=== PATIENT | male | born 1975 | race African-American/Black ===

== ENCOUNTER 2018-02-23 19:25 | Emergency (ER) | payer SELFPAY ==
[~2018-02-23] VITALS: Ht 170.2 cm; Wt 68.0 kg
[2018-02-23] MEDS ORDERED: IBUPROFEN 600 MG TABLET. PO ONE ×2 (20:00)
[2018-02-23] MEDS ORDERED: IV NORMAL SALINE 1000ML BAG 1,000 ML IV ONE ×3 (20:00→21:00)
[2018-02-23 20:15] LABS: BASO # 0.1 x10^3/uL (0.0-0.2); BASO % 1 % (0-3); EOS # 0.3 x10^3/uL (0.0-0.7); EOS % 3 % (0-3); HEMATOCRIT 32.6 % (39.0-53.0); HEMOGLOBIN 11.1 g/dL (13.0-17.5); LYMPH # 1.4 x10^3/uL (1.0-4.8); LYMPH % 13 % (24-48); MEAN CORPUSCULAR HEMOGLOBIN 32 pg (25-35); MEAN CORPUSCULAR HGB CONC 34 g/dL (31-37); MEAN CORPUSCULAR VOLUME 95 fL (79-100); MONO # 0.9 x10^3/uL (0.0-1.1); MONO % 8 % (0-9); NEUT # 8.8 x10^3uL (1.8-7.7); NEUT % 76 % (31-73); PLATELET COUNT 608 x10^3/uL (140-400); RED BLOOD COUNT 3.44 x10^6/uL (4.30-5.70); RED CELL DISTRIBUTION WIDTH 14.3 % (11.5-14.5); WHITE BLOOD COUNT 11.6 x10^3/uL (4.0-11.0)
--- NOTE | 2018-02-23 20:18 | PHYS DOC ---
Past Medical History Past Medical History: No Pertinent History Past Surgical History: Other Additional Past Surgical Histo: ABDOMINAL HERNIA Additional Information: Former smoker Alcohol Use: None Drug Use: Marijuana Adult General Chief Complaint Chief Complaint: FEVER HPI HPI 42-year-old male presents with report of fever and pruritic rash which started 6 days ago. Reports Review of Systems Review of Systems Constitutional: Denies fever or chills [] Eyes: Denies change in visual acuity, redness, or eye pain [] HENT: Denies nasal congestion or sore throat [] Respiratory: Denies cough or shortness of breath [] Cardiovascular: No additional information not addressed in HPI [] GI: Denies abdominal pain, nausea, vomiting, bloody stools or diarrhea [] : Denies dysuria or hematuria [] Musculoskeletal: Denies back pain or joint pain [] Integument: Denies rash or skin lesions [] Neurologic: Denies headache, focal weakness or sensory changes [] Endocrine: Denies polyuria or polydipsia [] All other systems were reviewed and found to be within normal limits, except as documented in this note. Current Medications Current Medications Current Medications Medications (Trade) Dose Ordered Sig/Marai Start Time Stop Time Status Last Admin Dose Admin Dexamethasone Sodium Phosphate (Decadron) 10 mg 1X ONCE 02/23/18 20:45 02/23/18 20:46 DC 02/23/18 21:02 10 MG Diphenhydramine HCl (Benadryl) 50 mg 1X ONCE 02/23/18 20:45 02/23/18 20:46 DC 02/23/18 21:02 50 MG Ibuprofen (Motrin) 600 mg STK-MED ONCE 02/23/18 20:00 02/23/18 20:01 DC Sodium Chloride 1,000 ml @ 1,000 mls/hr 1X ONCE 02/23/18 21:00 02/23/18 21:59 02/23/18 21:02 1,000 MLS/HR Allergies Allergies Allergies Coded Allergies Type Severity Reaction Last Updated Verified No Known Drug Allergies 02/23/18 No Physical Exam Physical Exam Constitutional: Well developed, well nourished, no acute distress, non-toxic appearance. [] HENT: Normocephalic, atraumatic, bilateral external ears normal, oropharynx moist, no oral exudates, nose normal. [] Eyes: PERRLA, EOMI, conjunctiva normal, no discharge. [] Neck: Normal range of motion, no tenderness, supple, no stridor. [] Cardiovascular:Heart rate regular rhythm, no murmur [] Lungs & Thorax: Bilateral breath sounds clear to auscultation [] Abdomen: Bowel sounds normal, soft, no tenderness, no masses, no pulsatile masses. [] Skin: Warm, dry, no erythema, no rash. [] Back: No tenderness, no CVA tenderness. [] Extremities: No tenderness, no cyanosis, no clubbing, ROM intact, no edema. [] Neurologic: Alert and oriented X 3, normal motor function, normal sensory function, no focal deficits noted. [] Psychologic: Affect normal, judgement normal, mood normal. [] Current Patient Data Vital Signs Vital Signs Date Time Temp Pulse Resp B/P (MAP) Pulse Ox O2 Delivery O2 Flow Rate FiO2 02/23/18 19:40 102.3 125 24 143/96 (112) 99 Room Air 102.3 Lab Values Laboratory Tests Test 02/23/18 19:54 02/23/18 20:00 White Blood Count 11.6 x10^3/uL (4.0-11.0) H Red Blood Count 3.44 x10^6/uL (4.30-5.70) L Hemoglobin 11.1 g/dL (13.0-17.5) L Hematocrit 32.6 % (39.0-53.0) L Mean Corpuscular Volume 95 fL (79-100) Mean Corpuscular Hemoglobin 32 pg (25-35) Mean Corpuscular Hemoglobin Concent 34 g/dL (31-37) Red Cell Distribution Width 14.3 % (11.5-14.5) Platelet Count 608 x10^3/uL (140-400) H Neutrophils (%) (Auto) 76 % (31-73) H Lymphocytes (%) (Auto) 13 % (24-48) L Monocytes (%) (Auto) 8 % (0-9) Eosinophils (%) (Auto) 3 % (0-3) Basophils (%) (Auto) 1 % (0-3) Neutrophils # (Auto) 8.8 x10^3uL (1.8-7.7) H Lymphocytes # (Auto) 1.4 x10^3/uL (1.0-4.8) Monocytes # (Auto) 0.9 x10^3/uL (0.0-1.1) Eosinophils # (Auto) 0.3 x10^3/uL (0.0-0.7) Basophils # (Auto) 0.1 x10^3/uL (0.0-0.2) Sodium Level 134 mmol/L (136-145) L Potassium Level 3.8 mmol/L (3.5-5.1) Chloride Level 98 mmol/L (98-107) Carbon Dioxide Level 28 mmol/L (21-32) Anion Gap 8 (6-14) Blood Urea Nitrogen 22 mg/dL (8-26) Creatinine 1.1 mg/dL (0.7-1.3) Estimated GFR (Cockcroft-Gault) 89.7 BUN/Creatinine Ratio 20 (6-20) Glucose Level 160 mg/dL (70-99) H Lactic Acid Level 1.2 mmol/L (0.4-2.0) Calcium Level 8.7 mg/dL (8.5-10.1) Magnesium Level 1.9 mg/dL (1.8-2.4) Total Bilirubin 0.6 mg/dL (0.2-1.0) Aspartate Amino Transferase (AST) 69 U/L (15-37) H Alanine Aminotransferase (ALT) 98 U/L (16-63) H Alkaline Phosphatase 548 U/L (46-116) H Total Protein 7.3 g/dL (6.4-8.2) Albumin 2.0 g/dL (3.4-5.0) L Albumin/Globulin Ratio 0.4 (1.0-1.7) L Urine Collection Type Unknown Urine Color Yellow Urine Clarity Clear Urine pH 5.5 Urine Specific Alice 1.015 Urine Protein >=300 mg/dL (NEG-TRACE) Urine Glucose (UA) Negative mg/dL (NEG) Urine Ketones (Stick) Negative mg/dL (NEG) Urine Blood Small (NEG) Urine Nitrite Negative (NEG) Urine Bilirubin Negative (NEG) Urine Urobilinogen Dipstick 1.0 mg/dL (0.2 mg/dL) Urine Leukocyte Esterase Negative (NEG) Urine RBC 1-2 /HPF (0-2) Urine WBC 1-4 /HPF (0-4) Urine Squamous Epithelial Cells Occ /LPF Urine Bacteria 0 /HPF (0-FEW) Urine Opiates Screen Pos (NEG) Urine Methadone Screen Neg (NEG) Urine Barbiturates Neg (NEG) Urine Phencyclidine Screen Neg (NEG) Urine Amphetamine/Methamphetamine Pos (NEG) Urine Benzodiazepines Screen Neg (NEG) Urine Cocaine Screen Neg (NEG) Urine Cannabinoids Screen Pos (NEG) Urine Ethyl Alcohol Neg (NEG) Laboratory Tests 02/23/18 19:54 Laboratory Tests 02/23/18 19:54 EKG EKG [] Radiology/Procedures Radiology/Procedures [] Course & Med Decision Making Course & Med Decision Making Pertinent Labs and Imaging studies reviewed. (See chart for details) [] Dragon Disclaimer Dragon Disclaimer This electronic medical record was generated, in whole or in part, using a voice recognition dictation system. Departure Departure Impression: Primary Impression: Pruritic rash Disposition: 01 HOME, SELF-CARE Condition: STABLE Referrals: NO PCP (PCP) EDU SHEA MD Patient Instructions: Chickenpox, Adult, Rash, [id number] Scripts Diphenhydramine Hcl (BENADRYL) 25 Mg Capsule 1 CAP PO QID PRN for ITCHING, #14 CAP 0 Refills Prov: ZHANE PROCTOR DO 02/23/18 Prednisone (PREDNISONE) 20 Mg Tablet 2 TAB PO DAILY, #8 TAB Start tomorrow 02/24/18 Prov: ZHANE PROCTOR DO 02/23/18 ZHANE PROCTOR DO Feb 23, 2018 20:18
[2018-02-23 20:20] LABS: BILIRUBIN,URINE NEGATIVE (NEG); CLARITY,URINE CLEAR; COLOR,URINE YELLOW; NITRITE,URINE NEGATIVE (NEG); PH,URINE 5.5; PROTEIN,URINE >=300 mg/dL (NEG-TRACE)
[2018-02-23 20:32] LABS: CALCIUM 8.7 mg/dL (8.5-10.1); CREATININE 1.1 mg/dL (0.7-1.3); GFR 89.7; POTASSIUM 3.8 mmol/L (3.5-5.1)
[2018-02-23 20:35] LABS: BACTERIA,URINE 0 /HPF (0-FEW); SQUAMOUS EPITHELIAL CELL,UR OCC /LPF
[2018-02-23 20:41] LABS: AMPHETAMINE/METHAMPHETAMINE POS (NEG); BARBITURATES NEG (NEG); BENZODIAZEPINES NEG (NEG); CANNABINOIDS POS (NEG); COCAINE NEG (NEG); METHADONE NEG (NEG); OPIATES POS (NEG); PHENCYCLIDINE NEG (NEG)
[2018-02-23 20:42] LABS: ALBUMIN/GLOBULIN RATIO 0.4 (1.0-1.7); TOTAL BILIRUBIN 0.6 mg/dL (0.2-1.0); TOTAL PROTEIN 7.3 g/dL (6.4-8.2)
[2018-02-23] MEDS ORDERED: DEXAMETHASONE SOD PHOS 20 MG/5 ML VIAL. IV ONE (20:45)
[2018-02-23] MEDS ORDERED: diphenhydrAMINE HCL 25 MG CAPSULE PO ONE (20:45)
[2018-02-23] MEDS ORDERED: DIPH25CA58 PO (21:48)
[2018-02-23] MEDS ORDERED: PRED20TA PO (21:48)
[2018-02-23 22:05] VITALS: BP 135/81
--- NOTE | 2018-02-24 03:00 | RAD ---
Examination: CHEST AP ONLY History: ER PATIENT. FEVER RASH X6 DAYS. NO PRIORS Comparison/Correlation: None Findings: Portable upright frontal view chest was obtained. Heart size and pulmonary vasculature are normal. No infiltrate or pneumothorax. Bony structures are unremarkable. No pleural effusion. Impression: No active disease. Electronically signed by: Terell Posada MD (02/24/2018 2:56 AM) [facility]
== END 2018-02-23 22:32 | disposition home or self-care (01) ==
LOC: ER 19:25
DX: L29.9 Pruritus, unspecified (principal); R21 Rash and other nonspecific skin eruption; R50.9 Fever, unspecified; Z87.891 Personal history of nicotine dependence
CPT/HCPCS: 36415; 71045; 80053; 80307; 81001; 83605; 83735; 85025; 87040; 96374; 99284; J1100; J7030; Q0163

== ENCOUNTER 2018-05-21 23:37 | Inpatient (IN) | payer SELFPAY ==
[~2018-05-21] VITALS: Ht 172.7 cm; Wt 68.0 kg
[~2018-05-21 23:37] MED LIST: DIPH25CA58 PO; PRED20TA PO
[2018-05-22] VITALS (8 sets, daily range): BP systolic 131–160; BP diastolic 83–108
[2018-05-22] MEDS ORDERED: MORPHINE SULFATE 2 MG/ML VIAL. IV/SQ PRN (00:30)
--- NOTE | 2018-05-22 00:59 | PHYS DOC ---
Past Medical History Past Medical History: No Pertinent History Past Surgical History: Other Additional Past Surgical Histo: ABDOMINAL HERNIA Additional Information: 1PPD Alcohol Use: None Drug Use: Marijuana Adult General Chief Complaint Chief Complaint: FOOT INJURY PAIN HPI HPI Patient is a 42 year old male who presents to the ED today complaining infection on the right foot that began one week ago. He states it began as blisters, on the in between the third and fourth toes, he states he has been soaking the foot in warm water then realized this evening the infection has gotten worse. Patient denies any fever. Review of Systems Review of Systems Constitutional: Denies fever or chills [] Eyes: Denies change in visual acuity, redness, or eye pain [] HENT: Denies nasal congestion or sore throat [] Respiratory: Denies cough or shortness of breath [] Cardiovascular: No additional information not addressed in HPI [] GI: Denies abdominal pain, nausea, vomiting, bloody stools or diarrhea [] : Denies dysuria or hematuria [] Musculoskeletal: Reports right foot infection Denies back pain or joint pain [] Integument: Denies rash or skin lesions [] Neurologic: Denies headache, focal weakness or sensory changes [] All other systems were reviewed and found to be within normal limits, except as documented in this note. Current Medications Current Medications Current Medications Medications (Trade) Dose Ordered Sig/Maria Start Time Stop Time Status Last Admin Dose Admin Diphtheria/ Tetanus/Acell Pertussis (Boostrix) 0.5 ml ONCE ONCE 05/22/18 01:00 05/22/18 01:01 DC Morphine Sulfate (Morphine Sulfate) 2 mg PRN Q15MIN PRN 05/22/18 00:30 05/23/18 00:29 Piperacillin Sod/ Tazobactam Sod 4.5 gm/Sodium Chloride 100 ml @ 200 mls/hr 1X ONCE 05/22/18 01:00 05/22/18 01:29 Vancomycin HCl (Vanco Per Pharmacy) 1 each PRN DAILY PRN 05/22/18 00:30 Vancomycin HCl 1.75 gm/Sodium Chloride 500 ml @ 250 mls/hr 1X ONCE 05/22/18 01:30 05/22/18 03:29 Allergies Allergies Allergies Coded Allergies Type Severity Reaction Last Updated Verified No Known Drug Allergies 02/23/18 No Physical Exam Physical Exam Constitutional: Well developed, well nourished, no acute distress, non-toxic appearance. [] HENT: Normocephalic, atraumatic, bilateral external ears normal, oropharynx moist, no oral exudates, nose normal. [] Eyes: PERRLA, EOMI, conjunctiva normal, no discharge. [] Neck: Normal range of motion, no tenderness, supple, no stridor. [] Cardiovascular:Heart rate regular rhythm, no murmur [] Lungs & Thorax: Bilateral breath sounds clear to auscultation [] Abdomen: Bowel sounds normal, soft, no tenderness, no masses, no pulsatile masses. [] Skin: Warm, dry, no erythema, no rash. [] Back: No tenderness, no CVA tenderness. [] Extremities: Right foot with +3 edema, most of it is on the foot itself, there is a wound between the third and fourth toes with the yellow drainage, the skin in between the toes is macerated. Cellulitis surrounding the third and fourth toes. +2 right pedal pulse. Neurologic: Alert and oriented X 3, normal motor function, normal sensory function, no focal deficits noted. [] Psychologic: Affect normal, judgement normal, mood normal. [] Current Patient Data Vital Signs Vital Signs Date Time Temp Pulse Resp B/P (MAP) Pulse Ox O2 Delivery O2 Flow Rate FiO2 05/22/18 00:39 98.8 125 20 161/100 (120) 96 Room Air 98.8 EKG EKG [] Radiology/Procedures Radiology/Procedures [] Course & Med Decision Making Course & Med Decision Making Pertinent Labs and Imaging studies reviewed. (See chart for details) This is a 42-year-old male patient presenting to the ED today with infection between the third and fourth toes on the right foot. Patient will be admitted for IV antibiotics, labs ordered in the ED. Patient started on vancomycin and Zosyn in the ED. Admitted under Dr. Natividad Epps will give her information in the AM Consult placed for Ortho and wound care Dragon Disclaimer Dragon Disclaimer This electronic medical record was generated, in whole or in part, using a voice recognition dictation system. Departure Departure Impression: Primary Impression: Foot infection Additional Impression: Tinea pedis, right Disposition: 01 HOME, SELF-CARE Condition: STABLE Referrals: NO PCP (PCP) Problem Qualifiers YEN DAS APRN 15, 2019 00:59
[2018-05-22] MEDS ORDERED: DIPHTH,PERTUSS(ACELL),TET TOX 0.5 ML DISP.SYRIN. VAX IM ONE (01:00)
[2018-05-22] MEDS ORDERED: PIPERACILLIN/TAZOBACTAM 4.5 GM in IV NORMAL SALINE 100ML 100 ML IV ONE (01:00)
[2018-05-22] MEDS ORDERED: MORPHINE SULFATE 4 MG/ML VIAL. IV PRN (01:15)
[2018-05-22] MEDS ORDERED: ONDANSETRON PF 4 MG/2 ML VIAL. IV PRN ×2 (01:15→09:15)
[2018-05-22] MEDS ORDERED: VANCOMYCIN 1.75 GM in IV NORMAL SALINE 500ML BAG 500 ML IV ONE (01:30)
[2018-05-22 02:00] LABS: BASO # 0.1 x10^3/uL (0.0-0.2); BASO % 1 % (0-3); EOS # 0.3 x10^3/uL (0.0-0.7); EOS % 3 % (0-3); HEMATOCRIT 37.1 % (39.0-53.0); HEMOGLOBIN 12.2 g/dL (13.0-17.5); LYMPH # 1.8 x10^3/uL (1.0-4.8); LYMPH % 20 % (24-48); MEAN CORPUSCULAR HEMOGLOBIN 30 pg (25-35); MEAN CORPUSCULAR HGB CONC 33 g/dL (31-37); MEAN CORPUSCULAR VOLUME 90 fL (79-100); MONO # 0.6 x10^3/uL (0.0-1.1); MONO % 7 % (0-9); NEUT # 6.1 x10^3uL (1.8-7.7); NEUT % 69 % (31-73); PLATELET COUNT 563 x10^3/uL (140-400); RED BLOOD COUNT 4.12 x10^6/uL (4.30-5.70); RED CELL DISTRIBUTION WIDTH 16.2 % (11.5-14.5); WHITE BLOOD COUNT 8.8 x10^3/uL (4.0-11.0)
[2018-05-22] MEDS: cloNIDine HCL 0.1 MG TABLET PO SCH ×4 (02:00→21:12)
--- NOTE | 2018-05-22 02:10 | NUR ---
ADMIT Pt arrived via W/C to room 424. Patient pivot step to from WC to bed. A/Ox4, drowsy. Room air, afebrile. Hypertensive on admit. PT states having pain 8/10 pain in right foot. Blister, wound with edema observed on right foot, primarily at 3rd and 4th toes and in between. Foul Odor, and very calloused, scaly feet bilateral. Full admission assessment completed at this time. No other open wounds observed.
[2018-05-22 02:13] LABS: CALCIUM 9.7 mg/dL (8.5-10.1); GFR 100.1; POTASSIUM 4.6 mmol/L (3.5-5.1)
[2018-05-22 02:28] LABS: ALBUMIN 3.6 g/dL (3.4-5.0); ALBUMIN/GLOBULIN RATIO 0.8 (1.0-1.7); TOTAL BILIRUBIN 0.4 mg/dL (0.2-1.0); TOTAL PROTEIN 8.1 g/dL (6.4-8.2)
[2018-05-22] MEDS: VANCOMYCIN PER PHARMACY MC PRN (02:49)
--- NOTE | 2018-05-22 02:49 | NUR ---
Pharmacy Vancomycin Dosing Note S:Consulted to monitor and dose vancomycin started 05/22/18. O:HORACE CALDERON is a 42 year old M with FOOT INFECTION . Height: 5 feet, 8 inches Weight: 68.049566 kg [place] Body Weight: 68.40 Adjusted Body Weight: 68.24 Dosing Weight: Actual Other Antibiotics: LABS: Last BUN: 21 Last Creatinine: 1 Creatinine Clearance: 95 mL/min Last WBC: 8.8 Last Procalcitonin: Tmax (past 24 hours): Microbiology: I/O: Drug Levels: Last level: on at Last dose given 05/22/18 at 0200 Vancomycin Dosing: Loading Dose: 1750 mg x1 Dosing Weight: Actual Target Trough: 10-20 A: Based on: WT AND CRCL P: 1. Begin Vancomycin 1000 mg IV q12h 2. Follow up Trough level on 05/23/18 at 1330 3. Pharmacy will continue to monitor, follow and adjust therapy as needed. MARCELLE FORBES RPH, 05/22/18 0249 Signed: 05/22/18 at 0249 by MARCELLE FORBES RPH PHA
--- NOTE | 2018-05-22 04:15 | RAD ---
Indication:foot infection/swelling/pus drainage TECHNIQUE: 3 views of the right foot COMPARISON:None FINDINGS/ impression: No acute fracture or dislocation. No periosteal reaction or cortical erosion to suggest radiographic signs of osteomyelitis. Electronically signed by: Gen Brizuela DO (05/22/2018 4:12 AM) [facility]
--- NOTE | 2018-05-22 07:03 | NUR ---
Routine consult called to Dr. Lacy's office. Message left with answering service,
[2018-05-22] MEDS: LACTOBACILLUS RHAMNOSUS GG 1 CAPSULE. PO SCH ×3 (08:08→21:11)
[2018-05-22] MEDS ORDERED: oxyCODONE/APAP 10/325 1 TAB TABLET PO PRN (09:15)
[2018-05-22] MEDS ORDERED: oxyCODONE/APAP 5/325 1 TAB TABLET PO PRN (09:15)
--- NOTE | 2018-05-22 10:05 | PDOC2 ---
CONSULT Date of Consult Date of Consult DATE: 05/22/18 TIME: 09:59 Reason for Consult Reason for Consult: Right foot infection Identification/Chief Complaint Chief Complaint Right foot infection Source Source: Chart review, Patient History of Present Illness Reason for Visit: 42-year-old man who developed a foot infection between the third and fourth toes , which is getting worse and he is now admitted for treatment. It probably started when he had chickenpox about a month ago, and he had a chickenpox lesion between his toes which didn't heal well, and that has become secondarily infected. Social History Social History he does smoke cigarettes Current Problem List Problem List Problems Medical Problems: (1) Foot infection Status: Acute (2) Tinea pedis, right Status: Acute Current Medications Current Medications Current Medications Piperacillin Sod/ Tazobactam Sod 4.5 gm/Sodium Chloride 100 ml @ 200 mls/hr 1X ONCE IV Last administered on 05/22/18at 01:36; Start 05/22/18 at 01:00; Stop 05/22/18 at 01:29; Status DC Vancomycin HCl (Vanco Per Pharmacy) 1 each PRN DAILY PRN MC SEE COMMENTS Last administered on 05/22/18at 02:49; Start 05/22/18 at 00:30 Morphine Sulfate (Morphine Sulfate) 2 mg PRN Q15MIN PRN IV/SQ PAIN GREATER THAN 3/10; Start 05/22/18 at 00:30; Stop 05/22/18 at 09:46; Status DC Diphtheria/ Tetanus/Acell Pertussis (Boostrix) 0.5 ml ONCE ONCE VAX IM Last administered on 05/22/18at 01:44; Start 05/22/18 at 01:00; Stop 05/22/18 at 01:01 ; Status DC Vancomycin HCl 1.75 gm/Sodium Chloride 500 ml @ 250 mls/hr 1X ONCE IV Last administered on 05/22/18at 02:10; Start 05/22/18 at 01:30; Stop 05/22/18 at 03:29 ; Status DC Ondansetron HCl (Zofran) 4 mg PRN Q8HRS PRN IV NAUSEA/VOMITING 1ST CHOICE; Start 05/22/18 at 01:15; Stop 05/22/18 at 09:06; Status DC Morphine Sulfate (Morphine Sulfate) 4 mg PRN Q2HR PRN IV SEVERE PAIN; Start at 01:15; Stop 05/23/18 at 01:14 Clonidine HCl (Catapres) 0.1 mg Q8HRS PO Last administered on 05/22/18at 05:56; Start 05/22/18 at 02:00 Vancomycin HCl 1 gm/Sodium Chloride 250 ml @ 250 mls/hr Q12H IV ; Start at 14:00 Vancomycin HCl (Vancomycin Trough Level) 1 each 1X ONCE MC ; Start 05/23/18 at 13:30; Stop 05/23/18 at 13:31 Lactobacillus Rhamnosus (Culturelle) 1 cap BID PO ; Start 05/22/18 at 09:00 Ondansetron HCl (Zofran) 4 mg PRN Q6HRS PRN IV NAUSEA/VOMITING 1ST CHOICE; Start 05/22/18 at 09:15 Oxycodone/ Acetaminophen (Percocet 5/325) 1 tab PRN Q4HRS PRN PO MODERATE PAIN ; Start 05/22/18 at 09:15 Oxycodone/ Acetaminophen (Percocet 10/325) 1 tab PRN Q4HRS PRN PO SEVERE PAIN; Start 05/22/18 at 09:15 Active Scripts Active Benadryl (Diphenhydramine Hcl) 25 Mg Capsule 1 Cap PO QID PRN Prednisone 20 Mg Tablet 2 Tab PO DAILY Start tomorrow 02/24/18 Reported No Known Medications Prior To Admisstion (Info) Each 1 Each Allergies Allergies: Coded Allergies: No Known Drug Allergies (Unverified , 02/23/18) ROS Review of System He now has an upper respiratory infection and a cough, which seems to have persisted after his chickenpox. He has hoarseness. He also mentioned a lesion "down there" which has not healed properly after chickenpox, and pointed to the genital area General: No: Chills, Night Sweats Eyes: No Decreased vision HEENT: No: Heacaches Respiratory: YES: Cough Cardiovascular: No Chest Pain Gastrointestinal: No Nausea, No Vomiting, No Diarrhea Genitourinary: YES Other (see above) Neurological: No Confusion Physical Exam General: Alert, Cooperative HEENT: Atraumatic Lungs: Other (slight hoarseness/wheezing. Not cyanotic. RR normal.) Heart: Regular rate Abdomen: Soft Extremities: Other (maceration between the right third and fourth toes. Superficial purulence, probably a superficial skin infection. I do not palpate any abscess in the foot or between the metatarsal heads or into the toes.) Skin: Other (macerated lesion right foot as above) Neuro: Normal speech, Normal tone, Sensation intact Psych/Mental Status: Mood NL Vitals VITALS Vital Signs Date Time Temp Pulse Resp B/P (MAP) Pulse Ox O2 Delivery O2 Flow Rate FiO2 05/22/18 07:10 Room Air 05/22/18 07:00 98.0 101 18 131/96 (108) 96 98.0 Labs Labs Laboratory Tests Test 05/22/18 01:30 White Blood Count 8.8 x10^3/uL (4.0-11.0) Red Blood Count 4.12 x10^6/uL (4.30-5.70) Hemoglobin 12.2 g/dL (13.0-17.5) Hematocrit 37.1 % (39.0-53.0) Mean Corpuscular Volume 90 fL (79-100) Mean Corpuscular Hemoglobin 30 pg (25-35) Mean Corpuscular Hemoglobin Concent 33 g/dL (31-37) Red Cell Distribution Width 16.2 % (11.5-14.5) Platelet Count 563 x10^3/uL (140-400) Neutrophils (%) (Auto) 69 % (31-73) Lymphocytes (%) (Auto) 20 % (24-48) Monocytes (%) (Auto) 7 % (0-9) Eosinophils (%) (Auto) 3 % (0-3) Basophils (%) (Auto) 1 % (0-3) Neutrophils # (Auto) 6.1 x10^3uL (1.8-7.7) Lymphocytes # (Auto) 1.8 x10^3/uL (1.0-4.8) Monocytes # (Auto) 0.6 x10^3/uL (0.0-1.1) Eosinophils # (Auto) 0.3 x10^3/uL (0.0-0.7) Basophils # (Auto) 0.1 x10^3/uL (0.0-0.2) Erythrocyte Sedimentation Rate 65 (0-15) Sodium Level 139 mmol/L (136-145) Potassium Level 4.6 mmol/L (3.5-5.1) Chloride Level 99 mmol/L (98-107) Carbon Dioxide Level 28 mmol/L (21-32) Anion Gap 12 (6-14) Blood Urea Nitrogen 21 mg/dL (8-26) Creatinine 1.0 mg/dL (0.7-1.3) Estimated GFR (Cockcroft-Gault) 100.1 BUN/Creatinine Ratio 21 (6-20) Glucose Level 113 mg/dL (70-99) Lactic Acid Level 0.5 mmol/L (0.4-2.0) Calcium Level 9.7 mg/dL (8.5-10.1) Total Bilirubin 0.4 mg/dL (0.2-1.0) Aspartate Amino Transf (AST/SGOT) 31 U/L (15-37) Alanine Aminotransferase (ALT/SGPT) 47 U/L (16-63) Alkaline Phosphatase 88 U/L (46-116) C-Reactive Protein, Quantitative 22.5 mg/L (0-3.3) Total Protein 8.1 g/dL (6.4-8.2) Albumin 3.6 g/dL (3.4-5.0) Albumin/Globulin Ratio 0.8 (1.0-1.7) Procalcitonin 0.24 ng/mL (0.00-0.10) Laboratory Tests Test 05/22/18 01:30 White Blood Count 8.8 x10^3/uL (4.0-11.0) Red Blood Count 4.12 x10^6/uL (4.30-5.70) Hemoglobin 12.2 g/dL (13.0-17.5) Hematocrit 37.1 % (39.0-53.0) Mean Corpuscular Volume 90 fL (79-100) Mean Corpuscular Hemoglobin 30 pg (25-35) Mean Corpuscular Hemoglobin Concent 33 g/dL (31-37) Red Cell Distribution Width 16.2 % (11.5-14.5) Platelet Count 563 x10^3/uL (140-400) Neutrophils (%) (Auto) 69 % (31-73) Lymphocytes (%) (Auto) 20 % (24-48) Monocytes (%) (Auto) 7 % (0-9) Eosinophils (%) (Auto) 3 % (0-3) Basophils (%) (Auto) 1 % (0-3) Neutrophils # (Auto) 6.1 x10^3uL (1.8-7.7) Lymphocytes # (Auto) 1.8 x10^3/uL (1.0-4.8) Monocytes # (Auto) 0.6 x10^3/uL (0.0-1.1) Eosinophils # (Auto) 0.3 x10^3/uL (0.0-0.7) Basophils # (Auto) 0.1 x10^3/uL (0.0-0.2) Erythrocyte Sedimentation Rate 65 (0-15) Sodium Level 139 mmol/L (136-145) Potassium Level 4.6 mmol/L (3.5-5.1) Chloride Level 99 mmol/L (98-107) Carbon Dioxide Level 28 mmol/L (21-32) Anion Gap 12 (6-14) Blood Urea Nitrogen 21 mg/dL (8-26) Creatinine 1.0 mg/dL (0.7-1.3) Estimated GFR (Cockcroft-Gault) 100.1 BUN/Creatinine Ratio 21 (6-20) Glucose Level 113 mg/dL (70-99) Lactic Acid Level 0.5 mmol/L (0.4-2.0) Calcium Level 9.7 mg/dL (8.5-10.1) Total Bilirubin 0.4 mg/dL (0.2-1.0) Aspartate Amino Transf (AST/SGOT) 31 U/L (15-37) Alanine Aminotransferase (ALT/SGPT) 47 U/L (16-63) Alkaline Phosphatase 88 U/L (46-116) C-Reactive Protein, Quantitative 22.5 mg/L (0-3.3) Total Protein 8.1 g/dL (6.4-8.2) Albumin 3.6 g/dL (3.4-5.0) Albumin/Globulin Ratio 0.8 (1.0-1.7) Procalcitonin 0.24 ng/mL (0.00-0.10) Images Images Report reviewed, images independently reviewed. [facility] [address] [facility] [place], [place] [id number] IMAGING REPORT Signed PATIENT: HORACE CALDERON Thiago ACCOUNT: [id number] : 1975 LOCATION: [address] [place] [address] AGE: 42 SEX: M EXAM STATUS: ADM IN ORD. PHYSICIAN: YEN DAS APRN REASON: infection PROCEDURE: FOOT RIGHT 3V Indication:foot infection/swelling/pus drainage TECHNIQUE: 3 views of the right foot COMPARISON:None FINDINGS/ impression: No acute fracture or dislocation. No periosteal reaction or cortical erosion to suggest radiographic signs of osteomyelitis. Electronically signed by: Gen Brizuela DO (05/22/2018 4:12 AM) [id number] Assessment/Plan Assessment/Plan Right foot superficial infection, I don't believe there is any deep abscess. I will ask wound care to see him for some appropriate dressing changes and I would continue IV antibiotics. I suspect this will begin improvement without surgery. VA IVORY MD May 22, 2018 10:05
[2018-05-22] MEDS ORDERED: chlordiazePOXIDE HCL 25 MG CAPSULE PO PRN (11:00)
[2018-05-22] MEDS ORDERED: diphenhydrAMINE HCL 25 MG CAPSULE PO PRN (11:00)
[2018-05-22] MEDS ORDERED: NICOTINE 21MG PATCH. TD PRN (11:00)
--- NOTE | 2018-05-22 11:04 | PDOC1 ---
History and Physical Date of Admission Date of Admission DATE: 05/22/18 TIME: 10:57 Identification/Chief Complaint Chief Complaint Concerns about right foot infection between the third and fourth digits Source Source: Caregiver, Chart review, Patient History of Present Illness History of Present Illness For the past 3 weeks or 3 days patient has been self soaking the right foot because of infection between the third and fourth digits that he thought he was getting worse so he went to the ER. Patient hence subsequently admitted because of elevated pro calcitonin, CRP elevated 22.5, ESR elevated 65 and a high blood pressure. Patient has no PCP, self-pay and does not take any meds. He does drink alcohol. The patient is seen - the foot does not look bad at all but I agree with assessment of needing for wound care and antibiotics. But he relayed some lesions on his private parts, mainly the penis and scrotum and I have inspected them and they look skin colored and somewhat whitish raised plaques unsure if some maybe fluid-filled?, I am concerned about syphilis or the like. He does tell me he is sexually active multiple partners. He agreed to be tested for syphilis HIV. The lesions dont hurt. ON his both heels, , he has severe lichenification and thickening of the skin on bilateral soles of the feet, no known history of psoriasis. Did discuss with pharmacy we do not have any Dovonex cream but maybe some clobetasol or prednisone cream equivalent. I will consult dermatology and infectious disease for the very remarkable lesions I'm seeing on the genitalia. Check for STD etc, discussed with RN. He is okay to eat Past Medical History Cardiovascular: No pertinent hx Pulmonary: No pertinent hx GI: No pertinent hx Heme/Onc: No pertinent hx Hepatobiliary: No pertinent hx Psych: No pertinent hx Rheumatologic: No pertinent hx Infectious disease: No pertinent hx ENT: No pertinent hx Renal/: No pertinent hx Endocrine: No pertinent hx Dermatology: No pertinent hx Past Surgical History Past Surgical History: No pertinent history Family History Family History: No Significant Social History Smoke: <1 pack per day ALCOHOL: heavy Drugs: None Current Problem List Problem List Problems Medical Problems: (1) Foot infection Status: Acute (2) Tinea pedis, right Status: Acute Current Medications Current Medications Current Medications Piperacillin Sod/ Tazobactam Sod 4.5 gm/Sodium Chloride 100 ml @ 200 mls/hr 1X ONCE IV Last administered on 05/22/18at 01:36; Start 05/22/18 at 01:00; Stop 05/22/18 at 01:29; Status DC Vancomycin HCl (Vanco Per Pharmacy) 1 each PRN DAILY PRN MC SEE COMMENTS Last administered on 05/22/18at 02:49; Start 05/22/18 at 00:30 Morphine Sulfate (Morphine Sulfate) 2 mg PRN Q15MIN PRN IV/SQ PAIN GREATER THAN 3/10; Start 05/22/18 at 00:30; Stop 05/22/18 at 09:46; Status DC Diphtheria/ Tetanus/Acell Pertussis (Boostrix) 0.5 ml ONCE ONCE VAX IM Last administered on 05/22/18at 01:44; Start 05/22/18 at 01:00; Stop 05/22/18 at 01:01 ; Status DC Vancomycin HCl 1.75 gm/Sodium Chloride 500 ml @ 250 mls/hr 1X ONCE IV Last administered on 05/22/18at 02:10; Start 05/22/18 at 01:30; Stop 05/22/18 at 03:29 ; Status DC Ondansetron HCl (Zofran) 4 mg PRN Q8HRS PRN IV NAUSEA/VOMITING 1ST CHOICE; Start 05/22/18 at 01:15; Stop 05/22/18 at 09:06; Status DC Morphine Sulfate (Morphine Sulfate) 4 mg PRN Q2HR PRN IV SEVERE PAIN; Start at 01:15; Stop 05/23/18 at 01:14 Clonidine HCl (Catapres) 0.1 mg Q8HRS PO Last administered on 05/22/18at 05:56; Start 05/22/18 at 02:00 Vancomycin HCl 1 gm/Sodium Chloride 250 ml @ 250 mls/hr Q12H IV ; Start at 14:00 Vancomycin HCl (Vancomycin Trough Level) 1 each 1X ONCE MC ; Start 05/23/18 at 13:30; Stop 05/23/18 at 13:31 Lactobacillus Rhamnosus (Culturelle) 1 cap BID PO ; Start 05/22/18 at 09:00 Ondansetron HCl (Zofran) 4 mg PRN Q6HRS PRN IV NAUSEA/VOMITING 1ST CHOICE; Start 05/22/18 at 09:15 Oxycodone/ Acetaminophen (Percocet 5/325) 1 tab PRN Q4HRS PRN PO MODERATE PAIN ; Start 05/22/18 at 09:15 Oxycodone/ Acetaminophen (Percocet 10/325) 1 tab PRN Q4HRS PRN PO SEVERE PAIN; Start 05/22/18 at 09:15 Active Scripts Active Benadryl (Diphenhydramine Hcl) 25 Mg Capsule 1 Cap PO QID PRN Prednisone 20 Mg Tablet 2 Tab PO DAILY Start tomorrow 02/24/18 Reported No Known Medications Prior To Admisstion (Info) Each 1 Each Allergies Allergies: Coded Allergies: No Known Drug Allergies (Unverified , 02/23/18) Physical Exam General: Alert, Oriented X3, Cooperative, No acute distress HEENT: Atraumatic, PERRLA, EOMI Lungs: Clear to auscultation, Normal air movement Heart: S1S2, RRR, no thrills, no rubs, no gallops, no murmurs Cardiovascular: S1, S2 Abdomen: Normal bowel sounds, Soft, No tenderness, No hepatosplenomegaly, No masses Male Genitals Exam: other (he has skin colored raised lesions some are whitish plaques on the penile shaft and also on bilateral scrotum, nonpruritic, nontender) PELVIC: Nml ext genitalia Skin: Other (he has severe lichenification on bilateral heels, with the open wound not draining or oozing doesn't actually seem infected right foot between the third and fourth digit, overall poor foot hygiene) Neuro: Normal gait, Normal speech, Strength at 5/5 X4 ext, Normal tone, Sensation intact, Cranial nerves 3-12 NL, Reflexes 2+ Psych/Mental Status: Mental status NL, Mood NL Vitals Vitals Vital Signs Date Time Temp Pulse Resp B/P (MAP) Pulse Ox O2 Delivery O2 Flow Rate FiO2 05/22/18 07:10 Room Air 05/22/18 07:00 98.0 101 18 131/96 (108) 96 98.0 Labs Labs Laboratory Tests Test 05/22/18 01:30 White Blood Count 8.8 x10^3/uL (4.0-11.0) Red Blood Count 4.12 x10^6/uL (4.30-5.70) Hemoglobin 12.2 g/dL (13.0-17.5) Hematocrit 37.1 % (39.0-53.0) Mean Corpuscular Volume 90 fL (79-100) Mean Corpuscular Hemoglobin 30 pg (25-35) Mean Corpuscular Hemoglobin Concent 33 g/dL (31-37) Red Cell Distribution Width 16.2 % (11.5-14.5) Platelet Count 563 x10^3/uL (140-400) Neutrophils (%) (Auto) 69 % (31-73) Lymphocytes (%) (Auto) 20 % (24-48) Monocytes (%) (Auto) 7 % (0-9) Eosinophils (%) (Auto) 3 % (0-3) Basophils (%) (Auto) 1 % (0-3) Neutrophils # (Auto) 6.1 x10^3uL (1.8-7.7) Lymphocytes # (Auto) 1.8 x10^3/uL (1.0-4.8) Monocytes # (Auto) 0.6 x10^3/uL (0.0-1.1) Eosinophils # (Auto) 0.3 x10^3/uL (0.0-0.7) Basophils # (Auto) 0.1 x10^3/uL (0.0-0.2) Erythrocyte Sedimentation Rate 65 (0-15) Sodium Level 139 mmol/L (136-145) Potassium Level 4.6 mmol/L (3.5-5.1) Chloride Level 99 mmol/L (98-107) Carbon Dioxide Level 28 mmol/L (21-32) Anion Gap 12 (6-14) Blood Urea Nitrogen 21 mg/dL (8-26) Creatinine 1.0 mg/dL (0.7-1.3) Estimated GFR (Cockcroft-Gault) 100.1 BUN/Creatinine Ratio 21 (6-20) Glucose Level 113 mg/dL (70-99) Lactic Acid Level 0.5 mmol/L (0.4-2.0) Calcium Level 9.7 mg/dL (8.5-10.1) Total Bilirubin 0.4 mg/dL (0.2-1.0) Aspartate Amino Transf (AST/SGOT) 31 U/L (15-37) Alanine Aminotransferase (ALT/SGPT) 47 U/L (16-63) Alkaline Phosphatase 88 U/L (46-116) C-Reactive Protein, Quantitative 22.5 mg/L (0-3.3) Total Protein 8.1 g/dL (6.4-8.2) Albumin 3.6 g/dL (3.4-5.0) Albumin/Globulin Ratio 0.8 (1.0-1.7) Procalcitonin 0.24 ng/mL (0.00-0.10) Laboratory Tests Test 05/22/18 01:30 White Blood Count 8.8 x10^3/uL (4.0-11.0) Red Blood Count 4.12 x10^6/uL (4.30-5.70) Hemoglobin 12.2 g/dL (13.0-17.5) Hematocrit 37.1 % (39.0-53.0) Mean Corpuscular Volume 90 fL (79-100) Mean Corpuscular Hemoglobin 30 pg (25-35) Mean Corpuscular Hemoglobin Concent 33 g/dL (31-37) Red Cell Distribution Width 16.2 % (11.5-14.5) Platelet Count 563 x10^3/uL (140-400) Neutrophils (%) (Auto) 69 % (31-73) Lymphocytes (%) (Auto) 20 % (24-48) Monocytes (%) (Auto) 7 % (0-9) Eosinophils (%) (Auto) 3 % (0-3) Basophils (%) (Auto) 1 % (0-3) Neutrophils # (Auto) 6.1 x10^3uL (1.8-7.7) Lymphocytes # (Auto) 1.8 x10^3/uL (1.0-4.8) Monocytes # (Auto) 0.6 x10^3/uL (0.0-1.1) Eosinophils # (Auto) 0.3 x10^3/uL (0.0-0.7) Basophils # (Auto) 0.1 x10^3/uL (0.0-0.2) Erythrocyte Sedimentation Rate 65 (0-15) Sodium Level 139 mmol/L (136-145) Potassium Level 4.6 mmol/L (3.5-5.1) Chloride Level 99 mmol/L (98-107) Carbon Dioxide Level 28 mmol/L (21-32) Anion Gap 12 (6-14) Blood Urea Nitrogen 21 mg/dL (8-26) Creatinine 1.0 mg/dL (0.7-1.3) Estimated GFR (Cockcroft-Gault) 100.1 BUN/Creatinine Ratio 21 (6-20) Glucose Level 113 mg/dL (70-99) Lactic Acid Level 0.5 mmol/L (0.4-2.0) Calcium Level 9.7 mg/dL (8.5-10.1) Total Bilirubin 0.4 mg/dL (0.2-1.0) Aspartate Amino Transf (AST/SGOT) 31 U/L (15-37) Alanine Aminotransferase (ALT/SGPT) 47 U/L (16-63) Alkaline Phosphatase 88 U/L (46-116) C-Reactive Protein, Quantitative 22.5 mg/L (0-3.3) Total Protein 8.1 g/dL (6.4-8.2) Albumin 3.6 g/dL (3.4-5.0) Albumin/Globulin Ratio 0.8 (1.0-1.7) Procalcitonin 0.24 ng/mL (0.00-0.10) VTE Prophylaxis Ordered VTE Prophylaxis Devices: Yes VTE Pharmacological Prophylaxi: Yes Assessment/Plan Assessment/Plan Right foot wound, in between third and fourth digit-no surgical treatment needed Genitalia lesions rule out STDs Sexually active Smoker, etoh drinker No PCP PLAN: No surgical plans per Ortho-I have discussed REg diet today Consult dermatology, infectious disease Check for syphilis HIV-he denies penile discharge though Further recs pending above WOund Consult TYLER FLYNN MD May 22, 2018 11:04
--- NOTE | 2018-05-22 11:42 | PDOC ---
Infectious Disease Note Vital Sign Vital Signs Vital Signs Date Time Temp Pulse Resp B/P (MAP) Pulse Ox O2 Delivery O2 Flow Rate FiO2 05/22/18 11:00 05/22/18 07:10 Room Air 05/22/18 07:00 98.0 101 18 96 98.0 Labs Lab Laboratory Tests Test 05/22/18 01:30 White Blood Count 8.8 x10^3/uL (4.0-11.0) Red Blood Count 4.12 x10^6/uL (4.30-5.70) Hemoglobin 12.2 g/dL (13.0-17.5) Hematocrit 37.1 % (39.0-53.0) Mean Corpuscular Volume 90 fL (79-100) Mean Corpuscular Hemoglobin 30 pg (25-35) Mean Corpuscular Hemoglobin Concent 33 g/dL (31-37) Red Cell Distribution Width 16.2 % (11.5-14.5) Platelet Count 563 x10^3/uL (140-400) Neutrophils (%) (Auto) 69 % (31-73) Lymphocytes (%) (Auto) 20 % (24-48) Monocytes (%) (Auto) 7 % (0-9) Eosinophils (%) (Auto) 3 % (0-3) Basophils (%) (Auto) 1 % (0-3) Neutrophils # (Auto) 6.1 x10^3uL (1.8-7.7) Lymphocytes # (Auto) 1.8 x10^3/uL (1.0-4.8) Monocytes # (Auto) 0.6 x10^3/uL (0.0-1.1) Eosinophils # (Auto) 0.3 x10^3/uL (0.0-0.7) Basophils # (Auto) 0.1 x10^3/uL (0.0-0.2) Erythrocyte Sedimentation Rate 65 (0-15) Sodium Level 139 mmol/L (136-145) Potassium Level 4.6 mmol/L (3.5-5.1) Chloride Level 99 mmol/L (98-107) Carbon Dioxide Level 28 mmol/L (21-32) Anion Gap 12 (6-14) Blood Urea Nitrogen 21 mg/dL (8-26) Creatinine 1.0 mg/dL (0.7-1.3) Estimated GFR (Cockcroft-Gault) 100.1 BUN/Creatinine Ratio 21 (6-20) Glucose Level 113 mg/dL (70-99) Lactic Acid Level 0.5 mmol/L (0.4-2.0) Calcium Level 9.7 mg/dL (8.5-10.1) Total Bilirubin 0.4 mg/dL (0.2-1.0) Aspartate Amino Transf (AST/SGOT) 31 U/L (15-37) Alanine Aminotransferase (ALT/SGPT) 47 U/L (16-63) Alkaline Phosphatase 88 U/L (46-116) C-Reactive Protein, Quantitative 22.5 mg/L (0-3.3) Total Protein 8.1 g/dL (6.4-8.2) Albumin 3.6 g/dL (3.4-5.0) Albumin/Globulin Ratio 0.8 (1.0-1.7) Procalcitonin 0.24 ng/mL (0.00-0.10) Objective Assessment Rt foot/toes infection Genital warts Plan Plan of Care agree with hiv, rpr elviraephine foot culture LARISA MAR MD May 22, 2018 11:42
[2018-05-22] MEDS: FLUCONAZOLE 100 MG TABLET. PO SCH (12:22)
[2018-05-22] MEDS: cefTRIAXone IV Push 1 GM VIAL. IVP SCH (12:23)
--- NOTE | 2018-05-22 14:08 | NUR ---
Wound Care: Consult to eval and treat wound to R 3\4th toes. Consult to Dr. Flaherty, suspecting fungal infection d/t yellow discoloration and thickening to nails, and thickened scaly skin on bilateral heels with proximal redness and irritation. Cleansed and applied nystatin powder and iodoflex, covered with a telfa dressing. No other open areas noted on head to toe inspection. Pt able to mobilize independently, and educated regarding positional changes to prevent skin breakdown. Itact bumpy lesions noted to penis and groin, per Dr. Flaherty, suspected genital warts. No wound care required for this issue, defer to I/D and primary. Plan to follow up 05/29/18.
[2018-05-22] MEDS: VANCOMYCIN 1 GM in IV NORMAL SALINE 250ML 250 ML IV SCH (14:24)
--- NOTE | 2018-05-22 14:54 | PDOC2 ---
Chief Complaint: Chief Complaint: foot ulcer Problems: (1) Foot infection (2) Tinea pedis, right Vital Signs: Vital Signs: Vital Signs Date Time Temp Pulse Resp B/P (MAP) Pulse Ox O2 Delivery O2 Flow Rate FiO2 05/22/18 00:39 98.8 125 20 161/100 (120) 96 Room Air 98.8 Vital Signs Date Time Temp Pulse Resp B/P (MAP) Pulse Ox O2 Delivery O2 Flow Rate FiO2 05/22/18 14:27 78 132/98 05/22/18 07:10 Room Air 05/22/18 07:00 98.0 18 96 98.0 Allergies: Allergies: Allergies Coded Allergies Type Severity Reaction Last Updated Verified No Known Drug Allergies 02/23/18 No Medications: Home Meds Active Scripts Diphenhydramine Hcl (BENADRYL) 25 Mg Capsule, 1 CAP PO QID PRN for ITCHING, #14 CAP 0 Refills Prov:ZHANE PROCTOR DO 02/23/18 Prednisone (PREDNISONE) 20 Mg Tablet, 2 TAB PO DAILY, #8 TAB Start tomorrow 02/24/18 Prov:ZHANE PROCTOR DO 02/23/18 Reported Medications Info (NO KNOWN MEDICATIONS PRIOR TO ADMISSTION) Each, 1 EACH , EACH 02/23/18 PCP: PCP: none Pain: Scale (pain): 6 Pain Context: None Surgical Date Mr. Conley was admitted to [facility] for infected right foot infection. Pt states this started when he had "chicken pox" several weeks ago, for which he was seen in our ED. The ED note has a dx of pruritic rash, and one of the hand-outs the pt was provided was for chicken pox. Pt states it started "overnight" describing the infection between the toes on his right foot, the thick white scaly skin on his heels bilaterally, and the nodules on the dorsal penis. He stated he came to the ED when the wound on his foot became worse over the last 3 days PSH He smokes cigarettes and marijuana. Unemployed, staying at home and helping take care of his mother and brother, both of whom have medical problems. Review of Systems: No fever.+ urethral discharge, clear in color Physical Exam - Wound #1 Wound Exam Location of Modifier: Right Body Site: Foot (between 3rd and 4th toes. White macerated wound bed with thick macerated periwound skin and with thick, rolled wound margins dorsally) Drainage Amount: Scant Surrounding Tissue Appearance: macerated, edges rolled Physical Exam - Wound #2 Wound Exam Body Site: Heel (Bilateral heel and plantar thick, white, scaly, dry lichenified skin with no open wounds) Drainage Amount: None Physical Exam - Wound #3 Wound Exam Body Site: Dorsum of penis: fleshy firm papules c/w genital warts. no open lesions Associated Signs/Symptoms: None Drainage Amount: None Odor: None/Absent A/P Three areas of interest: 1. Between the 3rd and 4th toes on the right foot is a white, wet, macerated lesion c/w fungal infection. As he has onychomycosis as well as what appears to be fungal involvement of his heels, it would be reasonable for this lesion to be fungus related. The unique characteristic that makes it less likely is that the other toe webs are free of disease. 2. The dry, lichenified heels are also consistent with fungal dermatitis. 3. The penile lesions appear to be genital warts. We will add nystatin powder and iodaflex to the interdigital foot infection. I agree with the oral diflucan. I also agree with the HIV and RPR testing. Problems: (1) Foot infection (2) Tinea pedis, right (3) Genital warts PEG CAROLINA MD May 22, 2018 14:54
--- NOTE | 2018-05-22 15:46 | NUR ---
SW following. Discussed with RN, pt is from home. No SW needs at this time. Pt is self pay, SW to give self pay resources.
--- NOTE | 2018-05-22 16:16 | NUR ---
Spoke with Audrey in lab re: RPR number, states she would look into it.
--- NOTE | 2018-05-22 17:30 | PDOC ---
SUBJECTIVE Subjective (doesn't explain much) lesions penis (not buttocks, thighs) OBJECTIVE Vital Signs Vital Signs Date Time Temp Pulse Resp B/P (MAP) Pulse Ox O2 Delivery O2 Flow Rate FiO2 05/22/18 15:00 97.9 84 16 150/108 (122) 98 Room Air 97.9 05/22/18 14:27 78 132/98 05/22/18 11:00 97.7 95 16 141/98 (112) 99 Room Air 97.7 05/22/18 11:00 05/22/18 07:10 Room Air 05/22/18 07:00 98.0 101 18 131/96 (108) 96 Room Air 98.0 05/22/18 05:56 105 160/108 05/22/18 05:53 105 160/108 (125) Room Air 05/22/18 03:51 104 18 149/103 (118) 95 Room Air 05/22/18 02:10 Room Air 05/22/18 02:09 98.3 102 18 147/106 (120) 93 Room Air 98.3 05/22/18 02:00 104 149/103 05/22/18 01:46 100 18 153/105 (121) 95 05/22/18 00:39 98.8 125 20 161/100 (120) 96 Room Air 98.8 I & O Intake and Output 05/22/18 07:00 Intake Total 1000 ml Output Total 525 ml Balance 475 ml Intake Oral 0 ml IV Total 1000 ml Output Urine Total 525 ml PHYSICAL EXAM Physical Exam looks to me like large molluscum shaft penis. some are confluent. ASSESSMENT/PLAN Assessment/Plan looks like large molluscum contagiosum. none noted on pubic skin or thighs. Patient given literature. These can be treated with cryo (in office) or imiquimod (at home-but can result in very unpleasant inflammatory reaction) agree with HIV/syphilis testing probably tinea pedis and onychomycosis. ( wouldn't treat feet with topical steroids). agree with fluconazole. I suggested to him that he follow up at my office. COMMENT Lab Laboratory Tests Test 05/22/18 01:30 White Blood Count 8.8 x10^3/uL (4.0-11.0) Red Blood Count 4.12 x10^6/uL (4.30-5.70) Hemoglobin 12.2 g/dL (13.0-17.5) Hematocrit 37.1 % (39.0-53.0) Mean Corpuscular Volume 90 fL (79-100) Mean Corpuscular Hemoglobin 30 pg (25-35) Mean Corpuscular Hemoglobin Concent 33 g/dL (31-37) Red Cell Distribution Width 16.2 % (11.5-14.5) Platelet Count 563 x10^3/uL (140-400) Neutrophils (%) (Auto) 69 % (31-73) Lymphocytes (%) (Auto) 20 % (24-48) Monocytes (%) (Auto) 7 % (0-9) Eosinophils (%) (Auto) 3 % (0-3) Basophils (%) (Auto) 1 % (0-3) Neutrophils # (Auto) 6.1 x10^3uL (1.8-7.7) Lymphocytes # (Auto) 1.8 x10^3/uL (1.0-4.8) Monocytes # (Auto) 0.6 x10^3/uL (0.0-1.1) Eosinophils # (Auto) 0.3 x10^3/uL (0.0-0.7) Basophils # (Auto) 0.1 x10^3/uL (0.0-0.2) Erythrocyte Sedimentation Rate 65 (0-15) Sodium Level 139 mmol/L (136-145) Potassium Level 4.6 mmol/L (3.5-5.1) Chloride Level 99 mmol/L (98-107) Carbon Dioxide Level 28 mmol/L (21-32) Anion Gap 12 (6-14) Blood Urea Nitrogen 21 mg/dL (8-26) Creatinine 1.0 mg/dL (0.7-1.3) Estimated GFR (Cockcroft-Gault) 100.1 BUN/Creatinine Ratio 21 (6-20) Glucose Level 113 mg/dL (70-99) Lactic Acid Level 0.5 mmol/L (0.4-2.0) Calcium Level 9.7 mg/dL (8.5-10.1) Total Bilirubin 0.4 mg/dL (0.2-1.0) Aspartate Amino Transf (AST/SGOT) 31 U/L (15-37) Alanine Aminotransferase (ALT/SGPT) 47 U/L (16-63) Alkaline Phosphatase 88 U/L (46-116) C-Reactive Protein, Quantitative 22.5 mg/L (0-3.3) Total Protein 8.1 g/dL (6.4-8.2) Albumin 3.6 g/dL (3.4-5.0) Albumin/Globulin Ratio 0.8 (1.0-1.7) Procalcitonin 0.24 ng/mL (0.00-0.10) Treponema pallidum Antibody Reactive (Nonreactive) HIV (1&2) Antibody Screen Nonreactive (Nonreactive) EDU SHEA MD May 22, 2018 17:30
--- NOTE | 2018-05-22 23:22 | CONS ---
DATE OF CONSULTATION: 05/22/2018 REQUESTING PHYSICIAN: Dr. Henson REASON FOR CONSULTATION: Foot infection and genital lesions. HISTORY OF PRESENT ILLNESS: This is a 42-year-old gentleman who came in with right foot toes hurting, swelling and drainage. The patient says he was diagnosed with chickenpox in February and since then he had a lesion between the toes and since then he festered into more problem. The patient denies any nausea, vomiting, diarrhea. Denies any urinary symptoms. Denies any chest pain, shortness of breath, abdominal pain, fever, chills or headache. PAST MEDICAL HISTORY: Positive for chickenpox diagnosis in February, also has had abdominal hernia surgery done. Otherwise, no other ongoing medical problems. SOCIAL HISTORY: Positive for smoking. Occasional alcohol use. The patient does do marijuana. No other drug use. No IV drug use. Sexually active, has had sexually transmitted disease in the past. Genital lesions that he says are there since the chickenpox. I seriously doubt that. REVIEW OF SYSTEMS: As per HPI, all other systems reviewed are negative. CURRENT MEDICATIONS: Reviewed. PHYSICAL EXAMINATION: GENERAL: Alert and oriented gentleman, not in distress. VITAL SIGNS: Stable, afebrile. HEENT: NAD. NECK: Supple, no JVP, no lymphadenopathy. LUNGS: Clear. HEART: S1, S2 regular. ABDOMEN: Benign. EXTREMITIES: No edema or cyanosis. SKIN: Unremarkable except right foot between the third and fourth toe area where he has a lesion, ulceration, maceration, drainage, secondary infection. GENITAL AREA: The patient does have a genital wart. The patient also has some small shotty lymph nodes all over in the neck, axilla and the groin. LABORATORY DATA: White count is 8.8; hemoglobin 12.2; platelets are 463,000. Sed rate is 65. BUN and creatinine are normal. Foot x-ray was unremarkable. IMPRESSION: 1. Right foot skin and soft tissue infection. 2. Genital wart. 3. Small shotty lymph nodes all over, commonly seen in human immunodeficiency virus, although multiple other etiology can do that too. RECOMMENDATIONS: Agree with HIV testing, RPR testing. Genital wart will need cryotherapy, which unfortunately we will not be able to do it here and he will have to go to either skin doctor or STD clinic. Rocephin, Diflucan for the foot, culture, rule out MRSA and will continue to follow. Thank you very much, Dr. Henson, for giving me the opportunity to participate in this patient's care. LARISA MAR MD DR: DAVID/johana JOB#: [id number] / [id number]
[2018-05-23] VITALS (8 sets, daily range): BP systolic 147–160; BP diastolic 104–114
[2018-05-23] MEDS: VANCOMYCIN 1 GM in IV NORMAL SALINE 250ML 250 ML IV SCH ×3 (01:56→15:48)
[2018-05-23] MEDS: cloNIDine HCL 0.1 MG TABLET PO SCH ×3 (06:28→21:09)
[2018-05-23 06:39] LABS: BASO % 1 % (0-3); EOS # 0.2 x10^3/uL (0.0-0.7); EOS % 3 % (0-3); HEMATOCRIT 41.6 % (39.0-53.0); HEMOGLOBIN 13.5 g/dL (13.0-17.5); LYMPH # 1.6 x10^3/uL (1.0-4.8); LYMPH % 22 % (24-48); MEAN CORPUSCULAR HEMOGLOBIN 29 pg (25-35); MEAN CORPUSCULAR HGB CONC 32 g/dL (31-37); MEAN CORPUSCULAR VOLUME 91 fL (79-100); MONO # 0.5 x10^3/uL (0.0-1.1); MONO % 7 % (0-9); NEUT # 4.8 x10^3uL (1.8-7.7); NEUT % 68 % (31-73); PLATELET COUNT 532 x10^3/uL (140-400); RED BLOOD COUNT 4.58 x10^6/uL (4.30-5.70); RED CELL DISTRIBUTION WIDTH 15.7 % (11.5-14.5); WHITE BLOOD COUNT 7.1 x10^3/uL (4.0-11.0)
[2018-05-23 06:56] LABS: CALCIUM 8.9 mg/dL (8.5-10.1); CREATININE 0.9 mg/dL (0.7-1.3); GFR 113.1; POTASSIUM 4.3 mmol/L (3.5-5.1)
[2018-05-23] MEDS: FLUCONAZOLE 100 MG TABLET. PO SCH (10:11)
[2018-05-23] MEDS: LACTOBACILLUS RHAMNOSUS GG 1 CAPSULE. PO SCH ×2 (10:11→21:08)
--- NOTE | 2018-05-23 10:33 | PDOC ---
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 Blood culture positive GPC blood culture - I updated him PLAN: COnt Rocephin/penicillin for syphilis Continue Diflucan for the significant tenia pedis and onycomycosis-topical will not fix this Follow identification and sensitivities for the GPC bacteremia Vitals Vitals Vital Signs Date Time Temp Pulse Resp B/P (MAP) Pulse Ox O2 Delivery O2 Flow Rate FiO2 05/23/18 08:30 97.7 91 18 158/104 (122) 99 Room Air 97.7 Physical Exam General: Alert, Oriented X3, Cooperative, No acute distress Heart: Regular rate, Normal S1, Normal S2 Lungs: Clear Abdomen: Normal bowel sounds, Soft, No tenderness, No hepatosplenomegaly, No masses Extremities: Other (maceration between the right third and fourth toes. Superficial purulence, probably a superficial skin infection. I do not palpate any abscess in the foot or between the metatarsal heads or into the toes.) Skin: Other (he has severe lichenification on bilateral heels, with the open wound not draining or oozing doesn't actually seem infected right foot between the third and fourth digit, overall poor foot hygiene) Labs LABS Laboratory Tests Test 05/23/18 06:07 White Blood Count 7.1 x10^3/uL (4.0-11.0) Red Blood Count 4.58 x10^6/uL (4.30-5.70) Hemoglobin 13.5 g/dL (13.0-17.5) Hematocrit 41.6 % (39.0-53.0) Mean Corpuscular Volume 91 fL (79-100) Mean Corpuscular Hemoglobin 29 pg (25-35) Mean Corpuscular Hemoglobin Concent 32 g/dL (31-37) Red Cell Distribution Width 15.7 % (11.5-14.5) Platelet Count 532 x10^3/uL (140-400) Neutrophils (%) (Auto) 68 % (31-73) Lymphocytes (%) (Auto) 22 % (24-48) Monocytes (%) (Auto) 7 % (0-9) Eosinophils (%) (Auto) 3 % (0-3) Basophils (%) (Auto) 1 % (0-3) Neutrophils # (Auto) 4.8 x10^3uL (1.8-7.7) Lymphocytes # (Auto) 1.6 x10^3/uL (1.0-4.8) Monocytes # (Auto) 0.5 x10^3/uL (0.0-1.1) Eosinophils # (Auto) 0.2 x10^3/uL (0.0-0.7) Basophils # (Auto) 0.0 x10^3/uL (0.0-0.2) Sodium Level 139 mmol/L (136-145) Potassium Level 4.3 mmol/L (3.5-5.1) Chloride Level 102 mmol/L (98-107) Carbon Dioxide Level 28 mmol/L (21-32) Anion Gap 9 (6-14) Blood Urea Nitrogen 15 mg/dL (8-26) Creatinine 0.9 mg/dL (0.7-1.3) Estimated GFR (Cockcroft-Gault) 113.1 Glucose Level 116 mg/dL (70-99) Calcium Level 8.9 mg/dL (8.5-10.1) Review of Systems Review of Systems A 14 point ROS was completed with the following noted as positive: Other systems reviewed and negative. \CONSTITUTIONAL: No fever or chills EYES: No recent changes SKIN: No rash or itching CARDIOVASCULAR: No chest pain, syncope, palpitations, or edema RESPIRATORY: No SOB or cough GASTROINTESTINAL: No nausea, vomiting or abdominal pain NEUROLOGICAL: No headaches or weakness ENDOCRINE: No cold or heat intolerance GENITOURINARY: No urgency or frequency of urination MUSCULOSKELETAL: No back pain or joint pain LYMPHATICS: No enlarged lymph nodes PSYCHIATRIC: No anxiety or depression Assessment and Plan Assessmemt and Plan Problems Medical Problems: (1) Foot infection Status: Acute (2) Tinea pedis, right Status: Acute Comment Review of Relevant I have reviewed the following items lexa (where applicable) has been applied. Labs Laboratory Tests Test 05/22/18 01:30 05/23/18 06:07 White Blood Count 8.8 x10^3/uL (4.0-11.0) 7.1 x10^3/uL (4.0-11.0) Red Blood Count 4.12 x10^6/uL (4.30-5.70) 4.58 x10^6/uL (4.30-5.70) Hemoglobin 12.2 g/dL (13.0-17.5) 13.5 g/dL (13.0-17.5) Hematocrit 37.1 % (39.0-53.0) 41.6 % (39.0-53.0) Mean Corpuscular Volume 90 fL (79-100) 91 fL (79-100) Mean Corpuscular Hemoglobin 30 pg (25-35) 29 pg (25-35) Mean Corpuscular Hemoglobin Concent 33 g/dL (31-37) 32 g/dL (31-37) Red Cell Distribution Width 16.2 % (11.5-14.5) 15.7 % (11.5-14.5) Platelet Count 563 x10^3/uL (140-400) 532 x10^3/uL (140-400) Neutrophils (%) (Auto) 69 % (31-73) 68 % (31-73) Lymphocytes (%) (Auto) 20 % (24-48) 22 % (24-48) Monocytes (%) (Auto) 7 % (0-9) 7 % (0-9) Eosinophils (%) (Auto) 3 % (0-3) 3 % (0-3) Basophils (%) (Auto) 1 % (0-3) 1 % (0-3) Neutrophils # (Auto) 6.1 x10^3uL (1.8-7.7) 4.8 x10^3uL (1.8-7.7) Lymphocytes # (Auto) 1.8 x10^3/uL (1.0-4.8) 1.6 x10^3/uL (1.0-4.8) Monocytes # (Auto) 0.6 x10^3/uL (0.0-1.1) 0.5 x10^3/uL (0.0-1.1) Eosinophils # (Auto) 0.3 x10^3/uL (0.0-0.7) 0.2 x10^3/uL (0.0-0.7) Basophils # (Auto) 0.1 x10^3/uL (0.0-0.2) 0.0 x10^3/uL (0.0-0.2) Erythrocyte Sedimentation Rate 65 (0-15) Sodium Level 139 mmol/L (136-145) 139 mmol/L (136-145) Potassium Level 4.6 mmol/L (3.5-5.1) 4.3 mmol/L (3.5-5.1) Chloride Level 99 mmol/L (98-107) 102 mmol/L (98-107) Carbon Dioxide Level 28 mmol/L (21-32) 28 mmol/L (21-32) Anion Gap 12 (6-14) 9 (6-14) Blood Urea Nitrogen 21 mg/dL (8-26) 15 mg/dL (8-26) Creatinine 1.0 mg/dL (0.7-1.3) 0.9 mg/dL (0.7-1.3) Estimated GFR (Cockcroft-Gault) 100.1 113.1 BUN/Creatinine Ratio 21 (6-20) Glucose Level 113 mg/dL (70-99) 116 mg/dL (70-99) Lactic Acid Level 0.5 mmol/L (0.4-2.0) Calcium Level 9.7 mg/dL (8.5-10.1) 8.9 mg/dL (8.5-10.1) Total Bilirubin 0.4 mg/dL (0.2-1.0) Aspartate Amino Transf (AST/SGOT) 31 U/L (15-37) Alanine Aminotransferase (ALT/SGPT) 47 U/L (16-63) Alkaline Phosphatase 88 U/L (46-116) C-Reactive Protein, Quantitative 22.5 mg/L (0-3.3) Total Protein 8.1 g/dL (6.4-8.2) Albumin 3.6 g/dL (3.4-5.0) Albumin/Globulin Ratio 0.8 (1.0-1.7) Procalcitonin 0.24 ng/mL (0.00-0.10) Treponema pallidum Antibody Reactive (Nonreactive) HIV (1&2) Antibody Screen Nonreactive (Nonreactive) Laboratory Tests Test 05/23/18 06:07 White Blood Count 7.1 x10^3/uL (4.0-11.0) Red Blood Count 4.58 x10^6/uL (4.30-5.70) Hemoglobin 13.5 g/dL (13.0-17.5) Hematocrit 41.6 % (39.0-53.0) Mean Corpuscular Volume 91 fL (79-100) Mean Corpuscular Hemoglobin 29 pg (25-35) Mean Corpuscular Hemoglobin Concent 32 g/dL (31-37) Red Cell Distribution Width 15.7 % (11.5-14.5) Platelet Count 532 x10^3/uL (140-400) Neutrophils (%) (Auto) 68 % (31-73) Lymphocytes (%) (Auto) 22 % (24-48) Monocytes (%) (Auto) 7 % (0-9) Eosinophils (%) (Auto) 3 % (0-3) Basophils (%) (Auto) 1 % (0-3) Neutrophils # (Auto) 4.8 x10^3uL (1.8-7.7) Lymphocytes # (Auto) 1.6 x10^3/uL (1.0-4.8) Monocytes # (Auto) 0.5 x10^3/uL (0.0-1.1) Eosinophils # (Auto) 0.2 x10^3/uL (0.0-0.7) Basophils # (Auto) 0.0 x10^3/uL (0.0-0.2) Sodium Level 139 mmol/L (136-145) Potassium Level 4.3 mmol/L (3.5-5.1) Chloride Level 102 mmol/L (98-107) Carbon Dioxide Level 28 mmol/L (21-32) Anion Gap 9 (6-14) Blood Urea Nitrogen 15 mg/dL (8-26) Creatinine 0.9 mg/dL (0.7-1.3) Estimated GFR (Cockcroft-Gault) 113.1 Glucose Level 116 mg/dL (70-99) Calcium Level 8.9 mg/dL (8.5-10.1) Microbiology 05/22/18 Blood Culture - Final, Complete 05/22/18 Aerobic Culture, Resulted Pending 05/22/18 Aerobic Culture Result 1 (MIROSLAVA), Resulted Pending 05/22/18 Gram Stain - Final, Resulted 05/22/18 Gram Stain Result 1 (MIROSLAVA) - Final, Resulted 05/22/18 Gram Stain Result 2 (MIROSLAVA) - Final, Resulted 05/22/18 Gram Stain Result 3 (MIROSLAVA) - Final, Resulted Medications Current Medications Piperacillin Sod/ Tazobactam Sod 4.5 gm/Sodium Chloride 100 ml @ 200 mls/hr 1X ONCE IV Last administered on 05/22/18at 01:36; Start 05/22/18 at 01:00; Stop 05/22/18 at 01:29; Status DC Vancomycin HCl (Vanco Per Pharmacy) 1 each PRN DAILY PRN MC SEE COMMENTS Last administered on 05/22/18at 02:49; Start 05/22/18 at 00:30 Morphine Sulfate (Morphine Sulfate) 2 mg PRN Q15MIN PRN IV/SQ PAIN GREATER THAN 3/10; Start 05/22/18 at 00:30; Stop 05/22/18 at 09:46; Status DC Diphtheria/ Tetanus/Acell Pertussis (Boostrix) 0.5 ml ONCE ONCE VAX IM Last administered on 05/22/18at 01:44; Start 05/22/18 at 01:00; Stop 05/22/18 at 01:01 ; Status DC Vancomycin HCl 1.75 gm/Sodium Chloride 500 ml @ 250 mls/hr 1X ONCE IV Last administered on 05/22/18at 02:10; Start 05/22/18 at 01:30; Stop 05/22/18 at 03:29 ; Status DC Ondansetron HCl (Zofran) 4 mg PRN Q8HRS PRN IV NAUSEA/VOMITING 1ST CHOICE; Start 05/22/18 at 01:15; Stop 05/22/18 at 09:06; Status DC Morphine Sulfate (Morphine Sulfate) 4 mg PRN Q2HR PRN IV SEVERE PAIN; Start at 01:15; Stop 05/23/18 at 01:14; Status DC Clonidine HCl (Catapres) 0.1 mg Q8HRS PO Last administered on 05/23/18at 06:28; Start 05/22/18 at 02:00 Vancomycin HCl 1 gm/Sodium Chloride 250 ml @ 250 mls/hr Q12H IV Last administered on 05/23/18at 01:56; Start 05/22/18 at 14:00 Vancomycin HCl (Vancomycin Trough Level) 1 each 1X ONCE MC ; Start 05/23/18 at 13:30; Stop 05/23/18 at 13:31 Lactobacillus Rhamnosus (Culturelle) 1 cap BID PO Last administered on at 10:11; Start 05/22/18 at 09:00 Ondansetron HCl (Zofran) 4 mg PRN Q6HRS PRN IV NAUSEA/VOMITING 1ST CHOICE; Start 05/22/18 at 09:15 Oxycodone/ Acetaminophen (Percocet 5/325) 1 tab PRN Q4HRS PRN PO MODERATE PAIN ; Start 05/22/18 at 09:15 Oxycodone/ Acetaminophen (Percocet 10/325) 1 tab PRN Q4HRS PRN PO SEVERE PAIN; Start 05/22/18 at 09:15 Diphenhydramine HCl (Benadryl) 25 mg PRN QID PRN PO ITCHING; Start 05/22/18 at 11:00 Chlordiazepoxide (Librium) 25 mg PRN Q6HRS PRN PO ANXIETY / AGITATION; Start at 11:00 Nicotine (Nicoderm Cq 21mg) 1 patch PRN DAILY PRN TD SMOKING CESSATION; Start 05/22/18 at 11:00 Ceftriaxone Sodium (Rocephin) 1 gm Q24H IVP Last administered on 05/22/18at 12: 23; Start 05/22/18 at 12:00 Fluconazole (Diflucan) 200 mg DAILY PO Last administered on 05/23/18at 10:11; Start 05/22/18 at 12:00 Active Scripts Active Benadryl (Diphenhydramine Hcl) 25 Mg Capsule 1 Cap PO QID PRN Prednisone 20 Mg Tablet 2 Tab PO DAILY Start tomorrow 02/24/18 Reported No Known Medications Prior To Admisstion (Info) Each 1 Each Vitals/I & O Vital Sign - Last 24 Hours 05/22/18 05/22/18 05/22/18 05/22/18 11:00 11:00 14:27 15:00 Temp 97.7 97.9 97.7 97.9 Pulse 95 78 84 Resp 16 16 B/P (MAP) 141/98 (112) 132/98 150/108 (122) Pulse Ox 99 98 O2 Delivery Room Air Room Air 05/22/18 05/22/18 05/22/18 05/22/18 19:00 20:00 21:12 23:00 Temp 97.8 98.2 97.8 98.2 Pulse 108 108 111 Resp 20 20 B/P (MAP) 136/83 (100) 136/83 136/100 (112) Pulse Ox 97 99 O2 Delivery Room Air Room Air Room Air 05/23/18 05/23/18 05/23/18 05/23/18 03:00 03:01 06:28 07:00 Temp 98.4 97.7 98.4 97.7 Pulse 94 92 92 91 Resp 18 18 B/P (MAP) 160/114 (129) 158/106 (123) 158/106 158/104 (122) Pulse Ox 98 99 O2 Delivery Room Air Room Air 05/23/18 08:30 Temp 97.7 97.7 Pulse 91 Resp 18 B/P (MAP) 158/104 (122) Pulse Ox 99 O2 Delivery Room Air Intake and Output 05/22/18 05/22/18 05/23/18 15:00 23:00 07:00 Intake Total 180 ml Output Total 500 ml 400 ml Balance -320 ml -400 ml TYLER FLYNN MD May 23, 2018 10:33
[2018-05-23] MEDS: cefTRIAXone IV Push 1 GM VIAL. IVP SCH (13:02)
[2018-05-23 14:21] LABS: VANC TR 8.6 mcg/mL (10.0-20.0)
[2018-05-23] MEDS: VANCOMYCIN PER PHARMACY MC PRN (15:00)
--- NOTE | 2018-05-23 15:04 | NUR ---
Pharmacy Vancomycin Dosing Note S:Consulted to monitor and dose vancomycin started 05/22/18. O:HORACE CALDERON is a 42 year old M with Cellulitis Bacteremia FOOT INFECTION, NO EVIDENCE OF OSTEO . Height: 5 feet, 8 inches Weight: 68.796501 kg [place] Body Weight: 206.40 Adjusted Body Weight: 151.04 Dosing Weight: Actual Other Antibiotics: CTX 05/22 - LABS: Last BUN: 15 Last Creatinine: 0.9 Creatinine Clearance: 95 mL/min Last WBC: 7.1 Last Procalcitonin: 0.24 Tmax (past 24 hours): 98.4 Microbiology: 05/23 GPC 2/4 BOTTLES BLOOD. GPC RIGHT FOOT WOUND, ID PENDING. I/O: Drug Levels: Last Trough level: 8.6 on 05/23/18 at 1340 Last dose given 05/22/18 at 0200 Vancomycin Dosing: Loading Dose: 1750 mg x1 Dosing Weight: Actual Target Trough: 15-20 A: Based on: SUBTHERAPEUTIC TROUGH, POSSIBLE BACTEREMIA, P: 1. Initiate new dosing regimen of Vancomycin 1000 mg IV q8h 2. Follow up Trough level on 05/24/18 at 1430 3. Pharmacy will continue to monitor, follow and adjust therapy as needed. EDGAR JAQUEZ, [facility], 05/23/18 [id number]
--- NOTE | 2018-05-23 16:10 | PDOC ---
Infectious Disease Note Subjective Subjective Feeling alright, no complaints or concerns Denies F/C/S/N/VD/pain ROS ROS per HPI Vital Sign Vital Signs Vital Signs Date Time Temp Pulse Resp B/P (MAP) Pulse Ox O2 Delivery O2 Flow Rate FiO2 05/23/18 15:49 124 152/109 05/23/18 11:00 98.4 22 99 Room Air 98.4 Physical Exam PHYSICAL EXAM GENERAL: resting quietly NECK: shotty nodes LUNGS: Clear. HEART: S1, S2 regular. ABDOMEN: Soft and nontender EXTREMITIES: No edema or cyanosis. SKIN: Unremarkable except right foot between the third and fourth toe area where he has a lesion, ulceration, maceration, drainage, secondary infection. GENITAL AREA: The patient does have a genital wart. 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, responds appropriately PIV Labs Lab Laboratory Tests Test 05/23/18 06:07 05/23/18 13:40 White Blood Count 7.1 x10^3/uL (4.0-11.0) Red Blood Count 4.58 x10^6/uL (4.30-5.70) Hemoglobin 13.5 g/dL (13.0-17.5) Hematocrit 41.6 % (39.0-53.0) Mean Corpuscular Volume 91 fL (79-100) Mean Corpuscular Hemoglobin 29 pg (25-35) Mean Corpuscular Hemoglobin Concent 32 g/dL (31-37) Red Cell Distribution Width 15.7 % (11.5-14.5) Platelet Count 532 x10^3/uL (140-400) Neutrophils (%) (Auto) 68 % (31-73) Lymphocytes (%) (Auto) 22 % (24-48) Monocytes (%) (Auto) 7 % (0-9) Eosinophils (%) (Auto) 3 % (0-3) Basophils (%) (Auto) 1 % (0-3) Neutrophils # (Auto) 4.8 x10^3uL (1.8-7.7) Lymphocytes # (Auto) 1.6 x10^3/uL (1.0-4.8) Monocytes # (Auto) 0.5 x10^3/uL (0.0-1.1) Eosinophils # (Auto) 0.2 x10^3/uL (0.0-0.7) Basophils # (Auto) 0.0 x10^3/uL (0.0-0.2) Sodium Level 139 mmol/L (136-145) Potassium Level 4.3 mmol/L (3.5-5.1) Chloride Level 102 mmol/L (98-107) Carbon Dioxide Level 28 mmol/L (21-32) Anion Gap 9 (6-14) Blood Urea Nitrogen 15 mg/dL (8-26) Creatinine 0.9 mg/dL (0.7-1.3) Estimated GFR (Cockcroft-Gault) 113.1 Glucose Level 116 mg/dL (70-99) Calcium Level 8.9 mg/dL (8.5-10.1) Vancomycin Level Trough 8.6 mcg/mL (10.0-20.0) Vancomycin Last Dose Date Unknown Vancomycin Last Dose Time Unknown Micro AEROBIC CULTURE PENDING AEROBIC RES 1 PENDING GRAM STAIN Final Final report GRAM STAIN RESULT 1 Final Comment No white blood cells seen. GRAM STAIN RESULT 2 Final Comment Many gram negative rods. GRAM STAIN RESULT 3 Final Comment Many gram positive cocci. 05/22. BLOOD CULTURE Final GRAM POSITIVE COCCI IN CLUSTERS SEEN IN 1 OF 4 BOTTLES; 2 SETS WERE DRAWN; RESULTS WERE CALLED TO TORI PARKER ON 4N AT 0740; 05/23/18 BY ABIGAIL. THE BLOOD CULTURES HAVE BEEN SENT TO [facility] FOR FURTHER WORKUP. AMMENDED REPORT: GRAM POSITIVE COCCI SEEN IN THE 2 OF 4 BOTTLES; 2 SETS WERE DRAWN; RESULTS WERE CALLED TO JEREMY Objective Assessment GPC (2 of 4 bottles) bacteremia (POA). repeat BC 05/23 pending Right foot skin and soft tissue infection. GPC an GNR Genital wart. Small shotty lymph nodes all over. HIV nonreactive Treponema pallidum AB positive Plan Plan of Care vanc, Rocephin and fluconazole vanc trough 8.6 f/u cultures Monitor WBC/tmp nand renal function closely Local wound care d/w nursing Patient seen and examined. Chart reviewed in detail. Case discussed with SOW FARM TECHNICIAN> Agree with above plan CARLOS EDUARDO GARRETT APRN May 23, 2018 16:10 AYAZ RODRÍGUEZ MD May 23, 2018 20:04
[2018-05-24] MEDS: VANCOMYCIN 1 GM in IV NORMAL SALINE 250ML 250 ML IV SCH ×2 (00:30→06:33)
[2018-05-24 03:00] VITALS: BP 157/108
[2018-05-24 05:56] LABS: CREATININE 0.9 mg/dL (0.7-1.3); GFR 113.1
[2018-05-24] MEDS: cloNIDine HCL 0.1 MG TABLET PO SCH ×3 (06:32→22:00)
[2018-05-24 07:00] VITALS: BP 149/110
--- NOTE | 2018-05-24 08:38 | PDOC ---
Infectious Disease Note Subjective Subjective Comfortable,denies pain Hoping to go home Denies F/C/S/N/VD/pain ROS ROS per HPI Vital Sign Vital Signs Vital Signs Date Time Temp Pulse Resp B/P (MAP) Pulse Ox O2 Delivery O2 Flow Rate FiO2 05/24/18 07:00 97.7 102 18 149/110 (123) 99 Room Air 97.7 Physical Exam PHYSICAL EXAM GENERAL: Propped up in bed, alert, smiling NECK: shotty nodes LUNGS: Clear. HEART: S1, S2 regular. ABDOMEN: Soft and nontender EXTREMITIES: No edema or cyanosis. SKIN: Unremarkable except right foot between the third and fourth toe area where he has a lesion, ulceration, maceration, drainage, secondary infection. GENITAL AREA: The patient does have a genital wart. 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 GRAM STAIN RESULT 2 Final Comment Many gram negative rods. GRAM STAIN RESULT 3 Final Comment Many gram positive cocci. 05/22. BLOOD CULTURE Final GRAM POSITIVE COCCI IN CLUSTERS SEEN IN 1 OF 4 BOTTLES; 2 SETS WERE DRAWN; RESULTS WERE CALLED TO TORI PARKER ON 4N AT 0740; 05/23/18 BY ABIGAIL. THE BLOOD CULTURES HAVE BEEN SENT TO [facility] FOR FURTHER WORKUP. AMMENDED REPORT: GRAM POSITIVE COCCI SEEN IN THE 2 OF 4 BOTTLES; 2 SETS WERE DRAWN; RESULTS WERE CALLED TO JEREMY Objective Assessment GPC (2 of 4 bottles) bacteremia (POA). repeat BC 05/23 pending Right foot skin and soft tissue infection. GPC and GNR Genital wart. Small shotty lymph nodes all over. HIV nonreactive Treponema pallidum AB positive Plan Plan of Care vanc, Rocephin and fluconazole vanc trough 8.6,,,today's trough pending f/u cultures Monitor WBC/tmp nand renal function closely Local wound care Patient seen and examined. Chart reviewed in detail. 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 Agree with above plan. CARLOS EDUARDO GARRETT APRN May 24, 2018 08:38 AYAZ RODRÍGUEZ MD May 24, 2018 21:03
[2018-05-24] MEDS ORDERED: PENICILLIN G BENZATHINE LA 2,400,000 UNIT/4 ML DISP.SYRIN. IM ONE (10:30)
[2018-05-24 11:00] VITALS: BP 139/105
[2018-05-24] MEDS: FLUCONAZOLE 100 MG TABLET. PO SCH (11:27)
[2018-05-24] MEDS: LACTOBACILLUS RHAMNOSUS GG 1 CAPSULE. PO SCH ×2 (11:28→22:00)
[2018-05-24] MEDS: cefTRIAXone IV Push 1 GM VIAL. IVP SCH (11:42)
--- NOTE | 2018-05-24 12:18 | PDOC ---
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 Blood culture positive GPC blood culture 2/4 bottles - I updated him PLAN: COnt Rocephin, vanc and diflucan IV Continue Diflucan for the significant tenia pedis and onycomycosis-topical will not fix this Follow identification and sensitivities for the GPC bacteremia Penicillin V 2.4 million units IM 1 now for the syphilis Vitals Vitals Vital Signs Date Time Temp Pulse Resp B/P (MAP) Pulse Ox O2 Delivery O2 Flow Rate FiO2 05/24/18 11:00 97.8 116 18 139/105 (116) 99 Room Air 97.8 Physical Exam Physical Exam GENERAL: Propped up in bed, alert, smiling NECK: shotty nodes LUNGS: Clear. HEART: S1, S2 regular. ABDOMEN: Soft and nontender EXTREMITIES: No edema or cyanosis. SKIN: Unremarkable except right foot between the third and fourth toe area where he has a lesion, ulceration, maceration, drainage, secondary infection. GENITAL AREA: The patient does have a genital wart. 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 Superficial purulence, probably a superficial skin infection. I do not palpate any abscess in the foot or between the metatarsal heads or into the toes.) Skin: Other (he has severe lichenification on bilateral heels, with the open wound not draining or oozing doesn't actually seem infected right foot between the third and fourth digit, overall poor foot hygiene) Labs LABS Laboratory Tests Test 05/23/18 13:40 05/24/18 04:40 Vancomycin Level Trough 8.6 mcg/mL (10.0-20.0) Vancomycin Last Dose Date Unknown Vancomycin Last Dose Time Unknown Creatinine 0.9 mg/dL (0.7-1.3) Estimated GFR (Cockcroft-Gault) 113.1 Review of Systems Review of Systems A 14 point ROS was completed with the following noted as positive: Other systems reviewed and negative. \CONSTITUTIONAL: No fever or chills EYES: No recent changes SKIN: No rash or itching CARDIOVASCULAR: No chest pain, syncope, palpitations, or edema RESPIRATORY: No SOB or cough GASTROINTESTINAL: No nausea, vomiting or abdominal pain NEUROLOGICAL: No headaches or weakness ENDOCRINE: No cold or heat intolerance GENITOURINARY: No urgency or frequency of urination MUSCULOSKELETAL: No back pain or joint pain LYMPHATICS: No enlarged lymph nodes PSYCHIATRIC: No anxiety or depression Assessment and Plan Assessmemt and Plan Problems Medical Problems: (1) Foot infection Status: Acute (2) Tinea pedis, right Status: Acute Comment Review of Relevant I have reviewed the following items lexa (where applicable) has been applied. Labs Laboratory Tests Test 05/23/18 06:07 05/23/18 13:40 05/24/18 04:40 White Blood Count 7.1 x10^3/uL (4.0-11.0) Red Blood Count 4.58 x10^6/uL (4.30-5.70) Hemoglobin 13.5 g/dL (13.0-17.5) Hematocrit 41.6 % (39.0-53.0) Mean Corpuscular Volume 91 fL (79-100) Mean Corpuscular Hemoglobin 29 pg (25-35) Mean Corpuscular Hemoglobin Concent 32 g/dL (31-37) Red Cell Distribution Width 15.7 % (11.5-14.5) Platelet Count 532 x10^3/uL (140-400) Neutrophils (%) (Auto) 68 % (31-73) Lymphocytes (%) (Auto) 22 % (24-48) Monocytes (%) (Auto) 7 % (0-9) Eosinophils (%) (Auto) 3 % (0-3) Basophils (%) (Auto) 1 % (0-3) Neutrophils # (Auto) 4.8 x10^3uL (1.8-7.7) Lymphocytes # (Auto) 1.6 x10^3/uL (1.0-4.8) Monocytes # (Auto) 0.5 x10^3/uL (0.0-1.1) Eosinophils # (Auto) 0.2 x10^3/uL (0.0-0.7) Basophils # (Auto) 0.0 x10^3/uL (0.0-0.2) Sodium Level 139 mmol/L (136-145) Potassium Level 4.3 mmol/L (3.5-5.1) Chloride Level 102 mmol/L (98-107) Carbon Dioxide Level 28 mmol/L (21-32) Anion Gap 9 (6-14) Blood Urea Nitrogen 15 mg/dL (8-26) Creatinine 0.9 mg/dL (0.7-1.3) 0.9 mg/dL (0.7-1.3) Estimated GFR (Cockcroft-Gault) 113.1 113.1 Glucose Level 116 mg/dL (70-99) Calcium Level 8.9 mg/dL (8.5-10.1) Vancomycin Level Trough 8.6 mcg/mL (10.0-20.0) Vancomycin Last Dose Date Unknown Vancomycin Last Dose Time Unknown Laboratory Tests Test 05/23/18 13:40 05/24/18 04:40 Vancomycin Level Trough 8.6 mcg/mL (10.0-20.0) Vancomycin Last Dose Date Unknown Vancomycin Last Dose Time Unknown Creatinine 0.9 mg/dL (0.7-1.3) Estimated GFR (Cockcroft-Gault) 113.1 Microbiology 05/22/18 Blood Culture - Final, Complete 05/22/18 Aerobic Culture, Resulted Pending 05/22/18 Aerobic Culture Result 1 (MIROSLAVA), Resulted Pending 05/22/18 Gram Stain - Final, Resulted 05/22/18 Gram Stain Result 1 (MIROSLAVA) - Final, Resulted 05/22/18 Gram Stain Result 2 (MIROSLAVA) - Final, Resulted 05/22/18 Gram Stain Result 3 (MIROSLAVA) - Final, Resulted Medications Current Medications Piperacillin Sod/ Tazobactam Sod 4.5 gm/Sodium Chloride 100 ml @ 200 mls/hr 1X ONCE IV Last administered on 05/22/18at 01:36; Start 05/22/18 at 01:00; Stop 05/22/18 at 01:29; Status DC Vancomycin HCl (Vanco Per Pharmacy) 1 each PRN DAILY PRN MC SEE COMMENTS Last administered on 05/23/18at 15:00; Start 05/22/18 at 00:30 Morphine Sulfate (Morphine Sulfate) 2 mg PRN Q15MIN PRN IV/SQ PAIN GREATER THAN 3/10; Start 05/22/18 at 00:30; Stop 05/22/18 at 09:46; Status DC Diphtheria/ Tetanus/Acell Pertussis (Boostrix) 0.5 ml ONCE ONCE VAX IM Last administered on 05/22/18at 01:44; Start 05/22/18 at 01:00; Stop 05/22/18 at 01:01 ; Status DC Vancomycin HCl 1.75 gm/Sodium Chloride 500 ml @ 250 mls/hr 1X ONCE IV Last administered on 05/22/18at 02:10; Start 05/22/18 at 01:30; Stop 05/22/18 at 03:29 ; Status DC Ondansetron HCl (Zofran) 4 mg PRN Q8HRS PRN IV NAUSEA/VOMITING 1ST CHOICE; Start 05/22/18 at 01:15; Stop 05/22/18 at 09:06; Status DC Morphine Sulfate (Morphine Sulfate) 4 mg PRN Q2HR PRN IV SEVERE PAIN; Start at 01:15; Stop 05/23/18 at 01:14; Status DC Clonidine HCl (Catapres) 0.1 mg Q8HRS PO Last administered on 05/24/18at 06:32; Start 05/22/18 at 02:00 Vancomycin HCl 1 gm/Sodium Chloride 250 ml @ 250 mls/hr Q12H IV Last administered on 05/23/18at 01:56; Start 05/22/18 at 14:00; Stop 05/23/18 at 14:44 ; Status DC Vancomycin HCl (Vancomycin Trough Level) 1 each 1X ONCE MC ; Start 05/23/18 at 13:30; Stop 05/23/18 at 13:31; Status DC Lactobacillus Rhamnosus (Culturelle) 1 cap BID PO Last administered on at 11:28; Start 05/22/18 at 09:00 Ondansetron HCl (Zofran) 4 mg PRN Q6HRS PRN IV NAUSEA/VOMITING 1ST CHOICE; Start 05/22/18 at 09:15 Oxycodone/ Acetaminophen (Percocet 5/325) 1 tab PRN Q4HRS PRN PO MODERATE PAIN ; Start 05/22/18 at 09:15 Oxycodone/ Acetaminophen (Percocet 10/325) 1 tab PRN Q4HRS PRN PO SEVERE PAIN; Start 05/22/18 at 09:15 Diphenhydramine HCl (Benadryl) 25 mg PRN QID PRN PO ITCHING; Start 05/22/18 at 11:00 Chlordiazepoxide (Librium) 25 mg PRN Q6HRS PRN PO ANXIETY / AGITATION; Start at 11:00 Nicotine (Nicoderm Cq 21mg) 1 patch PRN DAILY PRN TD SMOKING CESSATION; Start 05/22/18 at 11:00 Ceftriaxone Sodium (Rocephin) 1 gm Q24H IVP Last administered on 05/24/18at 11: 42; Start 05/22/18 at 12:00 Fluconazole (Diflucan) 200 mg DAILY PO Last administered on 05/24/18at 11:27; Start 05/22/18 at 12:00 Vancomycin HCl 1 gm/Sodium Chloride 250 ml @ 250 mls/hr Q8H IV Last administered on 05/24/18at 06:33; Start 05/23/18 at 15:00 Vancomycin HCl (Vancomycin Trough Level) 1 each 1X ONCE MC ; Start 05/24/18 at 14:30; Stop 05/24/18 at 14:31 Penicillin G Benzathine (Bicillin L-A) 2,400,000 unit 1X ONCE IM Last administered on 05/24/18at 11:38; Start 05/24/18 at 10:30; Stop 05/24/18 at 10:31 ; Status DC Active Scripts Active Benadryl (Diphenhydramine Hcl) 25 Mg Capsule 1 Cap PO QID PRN Prednisone 20 Mg Tablet 2 Tab PO DAILY Start tomorrow 02/24/18 Reported No Known Medications Prior To Admisstion (Info) Each 1 Each Vitals/I & O Vital Sign - Last 24 Hours 05/23/18 05/23/18 05/23/18 05/23/18 15:00 15:49 19:00 20:00 Temp 98.6 97.5 98.6 97.5 Pulse 117 124 104 Resp 20 20 B/P (MAP) 149/105 (120) 152/109 147/112 (124) Pulse Ox 100 99 O2 Delivery Room Air Room Air Room Air 05/23/18 05/23/18 05/24/18 05/24/18 21:09 23:00 03:00 06:32 Temp 98.5 97.5 98.5 97.5 Pulse 114 111 107 107 Resp 20 20 B/P (MAP) 147/114 149/104 (119) 157/108 (124) 157/108 Pulse Ox 97 99 O2 Delivery Room Air Room Air 05/24/18 05/24/18 07:00 11:00 Temp 97.7 97.8 97.7 97.8 Pulse 102 116 Resp 18 18 B/P (MAP) 149/110 (123) 139/105 (116) Pulse Ox 99 99 O2 Delivery Room Air Room Air Intake and Output 05/23/18 05/23/18 05/24/18 14:59 22:59 06:59 Intake Total 250 ml 120 ml Output Total 200 ml Balance 250 ml -80 ml TYLER FLYNN MD May 24, 2018 12:18
[2018-05-24 15:00] VITALS: BP 132/100
[2018-05-24 15:15] LABS: VANC TR 12.7 mcg/mL (10.0-20.0)
[2018-05-24] MEDS: VANCOMYCIN PER PHARMACY MC PRN (15:44)
--- NOTE | 2018-05-24 15:44 | NUR ---
Pharmacy Vancomycin Dosing Note S: Consulted to monitor and dose vancomycin started 05/22/18. O: HORACE CALDERON is a 42 year old M with Cellulitis, Bacteremia, FOOT INFECTION, NO EVIDENCE OF OSTEO . Other Antibiotics: CTX 05/22 - LABS: Last BUN: 15 Last Creatinine: 0.9 Creatinine Clearance: 95 mL/min Last WBC: 7.1 Last Procalcitonin: 0.24 Tmax (past 24 hours): 98.4 Microbiology: 05/23 GPC 2/4 BOTTLES BLOOD. GPC RIGHT FOOT WOUND, ID PENDING. Drug Levels: Last Trough level: 12.7 on 05/24/18 at 1430 Last dose given 05/24/18 at 0633 Vancomycin Dosing: Dosing Weight: Actual Target Trough: 15-20 A: Based on: Trough=12.7 P: 1. Change Vancomycin to 1250 mg IV q8h 2. Follow up Trough level on 05/25/18 at 1530 3. Pharmacy will continue to monitor, follow and adjust therapy as needed. MAK BAEZ, [facility], 05/24/18 [id number]
[2018-05-24] MEDS: VANCOMYCIN 1.25 GM in IV NORMAL SALINE 250ML 250 ML IV SCH ×2 (16:20→23:46)
[2018-05-24 19:00] VITALS: BP_SYST 155; BP_SYST 172; BP_DIAS 113; BP_DIAS 88
[2018-05-24 23:00] VITALS: BP 158/116
[2018-05-25 03:00] VITALS: BP 154/111
[2018-05-25 03:56] LABS: BASO # 0.1 x10^3/uL (0.0-0.2); BASO % 1 % (0-3); EOS # 0.2 x10^3/uL (0.0-0.7); EOS % 2 % (0-3); HEMATOCRIT 38.5 % (39.0-53.0); HEMOGLOBIN 12.6 g/dL (13.0-17.5); LYMPH # 2.6 x10^3/uL (1.0-4.8); LYMPH % 24 % (24-48); MEAN CORPUSCULAR HEMOGLOBIN 30 pg (25-35); MEAN CORPUSCULAR HGB CONC 33 g/dL (31-37); MEAN CORPUSCULAR VOLUME 90 fL (79-100); MONO # 0.8 x10^3/uL (0.0-1.1); MONO % 7 % (0-9); NEUT # 7.3 x10^3uL (1.8-7.7); NEUT % 66 % (31-73); PLATELET COUNT 511 x10^3/uL (140-400); RED BLOOD COUNT 4.28 x10^6/uL (4.30-5.70); RED CELL DISTRIBUTION WIDTH 15.9 % (11.5-14.5); WHITE BLOOD COUNT 11.1 x10^3/uL (4.0-11.0)
[2018-05-25 04:01] LABS: GFR 100.1
[2018-05-25] MEDS: cloNIDine HCL 0.1 MG TABLET PO SCH (06:49)
[2018-05-25 06:50] VITALS: BP 157/116
[2018-05-25 07:53] VITALS: BP 150/112
[2018-05-25 08:40] VITALS: BP 150/112
[2018-05-25] MEDS: LACTOBACILLUS RHAMNOSUS GG 1 CAPSULE. PO SCH (08:40)
[2018-05-25] MEDS: FLUCONAZOLE 100 MG TABLET. PO SCH (08:40)
[2018-05-25] MEDS: VANCOMYCIN 1.25 GM in IV NORMAL SALINE 250ML 250 ML IV SCH (08:42)
[2018-05-25] MEDS ORDERED: LISINOPRIL 5 MG TABLET. PO SCH (09:00)
[2018-05-25] MEDS ORDERED: hydroCHLOROthiazide 12.5 MG CAPSULE PO SCH (09:00)
--- NOTE | 2018-05-25 09:02 | PDOC ---
Infectious Disease Note Subjective Subjective Comfortable,denies pain Hoping to go home Denies F/C/S/N/VD/pain Vital Sign Vital Signs Vital Signs Date Time Temp Pulse Resp B/P (MAP) Pulse Ox O2 Delivery O2 Flow Rate FiO2 05/25/18 08:40 101 150/112 05/25/18 07:53 97.8 14 100 Room Air 97.8 Physical Exam PHYSICAL EXAM GENERAL: Propped up in bed, alert, smiling NECK: shotty nodes LUNGS: Clear. HEART: S1, S2 regular. ABDOMEN: Soft and nontender EXTREMITIES: No edema or cyanosis. SKIN: Unremarkable except right foot between the third and fourth toe area where he has a lesion, ulceration, maceration, drainage, secondary infection. GENITAL AREA: The patient does have a genital wart. 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 PIV Labs Lab Laboratory Tests Test 05/24/18 14:30 05/25/18 03:25 Vancomycin Level Trough 12.7 mcg/mL (10.0-20.0) Vancomycin Last Dose Date 05/23/18 Vancomycin Last Dose Time 2300 White Blood Count 11.1 x10^3/uL (4.0-11.0) Red Blood Count 4.28 x10^6/uL (4.30-5.70) Hemoglobin 12.6 g/dL (13.0-17.5) Hematocrit 38.5 % (39.0-53.0) Mean Corpuscular Volume 90 fL (79-100) Mean Corpuscular Hemoglobin 30 pg (25-35) Mean Corpuscular Hemoglobin Concent 33 g/dL (31-37) Red Cell Distribution Width 15.9 % (11.5-14.5) Platelet Count 511 x10^3/uL (140-400) Neutrophils (%) (Auto) 66 % (31-73) Lymphocytes (%) (Auto) 24 % (24-48) Monocytes (%) (Auto) 7 % (0-9) Eosinophils (%) (Auto) 2 % (0-3) Basophils (%) (Auto) 1 % (0-3) Neutrophils # (Auto) 7.3 x10^3uL (1.8-7.7) Lymphocytes # (Auto) 2.6 x10^3/uL (1.0-4.8) Monocytes # (Auto) 0.8 x10^3/uL (0.0-1.1) Eosinophils # (Auto) 0.2 x10^3/uL (0.0-0.7) Basophils # (Auto) 0.1 x10^3/uL (0.0-0.2) Creatinine 1.0 mg/dL (0.7-1.3) Estimated GFR (Cockcroft-Gault) 100.1 Procalcitonin < 0.10 ng/mL (0.00-0.10) Micro Microbiology 05/23/18 Blood Culture - Preliminary, Resulted NO GROWTH AFTER 1 DAY 05/22/18 Aerobic Culture - Preliminary, Resulted 05/22/18 Aerobic Culture Result 1 (MIROSLAVA) - Preliminary, Resulted 05/22/18 Aerobic Culture Result 2 (MIROSLAVA) - Preliminary, Resulted 05/22/18 Gram Stain - Final, Resulted 05/22/18 Gram Stain Result 1 (MIROSLAVA) - Final, Resulted 05/22/18 Gram Stain Result 2 (MIROSLAVA) - Final, Resulted 05/22/18 Gram Stain Result 3 (MIROSLAVA) - Final, Resulted Objective Assessment Rt foot/toes infection Genital warts [place] Plan Plan of Care f/u cultures Monitor WBC/tmp nand renal function closely Local wound care d/c ok RPR with titers pending will start Benzathin PCN 2.4 million units wkly x 3 LARISA MAR MD May 25, 2018 09:02
--- NOTE | 2018-05-25 10:53 | PDOC ---
PROGRESS NOTES Chief Complaint Chief Complaint Syphylis -Treponema pallidum AB positive GPC bacteremia 2/4 bottles Leukocytosis HIV NEG genitalia warts Molluscum contagiosum - genital area per dermatology Onychomycosis Tenia pedis Right foot wound, between 3rd and 4th digits History of Present Illness History of Present Illness Mr. Conley is a 42 yo male, presented with R foot wound, genital plaques. Was found to be positive for trepenoma AB and diagnosed with molluscum contagiosum. Patient currently denies fevers, pain, chills. He says genital warts are improving and denies foot pain. Discussed case with nurse. ID following. Vitals Vitals Vital Signs Date Time Temp Pulse Resp B/P (MAP) Pulse Ox O2 Delivery O2 Flow Rate FiO2 05/25/18 08:40 101 150/112 05/25/18 07:53 97.8 14 100 Room Air 97.8 Physical Exam Physical Exam GENERAL: Propped up in bed, alert, smiling NECK: shotty nodes LUNGS: Clear. HEART: S1, S2 regular. ABDOMEN: Soft and nontender EXTREMITIES: No edema or cyanosis. SKIN: Unremarkable except right foot between the third and fourth toe area where he has a lesion, ulceration, maceration, drainage, secondary infection. GENITAL AREA: The patient does have a genital wart. 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1 x10^3/uL (4.0-11.0) Red Blood Count 4.28 x10^6/uL (4.30-5.70) Hemoglobin 12.6 g/dL (13.0-17.5) Hematocrit 38.5 % (39.0-53.0) Mean Corpuscular Volume 90 fL (79-100) Mean Corpuscular Hemoglobin 30 pg (25-35) Mean Corpuscular Hemoglobin Concent 33 g/dL (31-37) Red Cell Distribution Width 15.9 % (11.5-14.5) Platelet Count 511 x10^3/uL (140-400) Neutrophils (%) (Auto) 66 % (31-73) Lymphocytes (%) (Auto) 24 % (24-48) Monocytes (%) (Auto) 7 % (0-9) Eosinophils (%) (Auto) 2 % (0-3) Basophils (%) (Auto) 1 % (0-3) Neutrophils # (Auto) 7.3 x10^3uL (1.8-7.7) Lymphocytes # (Auto) 2.6 x10^3/uL (1.0-4.8) Monocytes # (Auto) 0.8 x10^3/uL (0.0-1.1) Eosinophils # (Auto) 0.2 x10^3/uL (0.0-0.7) Basophils # (Auto) 0.1 x10^3/uL (0.0-0.2) Creatinine 1.0 mg/dL (0.7-1.3) Estimated GFR (Cockcroft-Gault) 100.1 Procalcitonin < 0.10 ng/mL (0.00-0.10) Review of Systems Review of Systems Denies fever and chills Denies pain Denies chest pain Denies shortness of breath Denies discharge Assessment and Plan Assessmemt and Plan Problems Medical Problems: (1) Foot infection Status: Acute (2) Tinea pedis, right Status: Acute Assessment: Syphilis -Treponema pallidum AB positive GPC bacteremia 2/4 bottles Leukocytosis HIV NEG genitalia warts Molluscum contagiosum - genital area per dermatology Onychomycosis Tenia pedis Right foot wound, between 3rd and 4th digits Plan: Continue PCN treatment at home Follow up with PCP outpatient Return to ED with worsening symptoms Appreciate ID input Patient is stable to discharge today Continue home meds Vancomycin and Ceftriaxone dc'ed Continue fluconazole Comment Review of Relevant I have reviewed the following items lexa (where applicable) has been applied. Labs Laboratory Tests Test 05/23/18 13:40 05/24/18 04:40 05/24/18 14:30 05/25/18 03:25 Vancomycin Level Trough 8.6 mcg/mL (10.0-20.0) 12.7 mcg/mL (10.0-20.0) Vancomycin Last Dose Date Unknown 05/23/18 Vancomycin Last Dose Time Unknown 2300 Creatinine 0.9 mg/dL (0.7-1.3) 1.0 mg/dL (0.7-1.3) Estimated GFR (Cockcroft-Gault) 113.1 100.1 White Blood Count 11.1 x10^3/uL (4.0-11.0) Red Blood Count 4.28 x10^6/uL (4.30-5.70) Hemoglobin 12.6 g/dL (13.0-17.5) Hematocrit 38.5 % (39.0-53.0) Mean Corpuscular Volume 90 fL (79-100) Mean Corpuscular Hemoglobin 30 pg (25-35) Mean Corpuscular Hemoglobin Concent 33 g/dL (31-37) Red Cell Distribution Width 15.9 % (11.5-14.5) Platelet Count 511 x10^3/uL (140-400) Neutrophils (%) (Auto) 66 % (31-73) Lymphocytes (%) (Auto) 24 % (24-48) Monocytes (%) (Auto) 7 % (0-9) Eosinophils (%) (Auto) 2 % (0-3) Basophils (%) (Auto) 1 % (0-3) Neutrophils # (Auto) 7.3 x10^3uL (1.8-7.7) Lymphocytes # (Auto) 2.6 x10^3/uL (1.0-4.8) Monocytes # (Auto) 0.8 x10^3/uL (0.0-1.1) Eosinophils # (Auto) 0.2 x10^3/uL (0.0-0.7) Basophils # (Auto) 0.1 x10^3/uL (0.0-0.2) Procalcitonin < 0.10 ng/mL (0.00-0.10) Laboratory Tests Test 05/24/18 14:30 05/25/18 03:25 Vancomycin Level Trough 12.7 mcg/mL (10.0-20.0) Vancomycin Last Dose Date 05/23/18 Vancomycin Last Dose Time 2300 White Blood Count 11.1 x10^3/uL (4.0-11.0) Red Blood Count 4.28 x10^6/uL (4.30-5.70) Hemoglobin 12.6 g/dL (13.0-17.5) Hematocrit 38.5 % (39.0-53.0) Mean Corpuscular Volume 90 fL (79-100) Mean Corpuscular Hemoglobin 30 pg (25-35) Mean Corpuscular Hemoglobin Concent 33 g/dL (31-37) Red Cell Distribution Width 15.9 % (11.5-14.5) Platelet Count 511 x10^3/uL (140-400) Neutrophils (%) (Auto) 66 % (31-73) Lymphocytes (%) (Auto) 24 % (24-48) Monocytes (%) (Auto) 7 % (0-9) Eosinophils (%) (Auto) 2 % (0-3) Basophils (%) (Auto) 1 % (0-3) Neutrophils # (Auto) 7.3 x10^3uL (1.8-7.7) Lymphocytes # (Auto) 2.6 x10^3/uL (1.0-4.8) Monocytes # (Auto) 0.8 x10^3/uL (0.0-1.1) Eosinophils # (Auto) 0.2 x10^3/uL (0.0-0.7) Basophils # (Auto) 0.1 x10^3/uL (0.0-0.2) Creatinine 1.0 mg/dL (0.7-1.3) Estimated GFR (Cockcroft-Gault) 100.1 Procalcitonin < 0.10 ng/mL (0.00-0.10) Microbiology 05/23/18 Blood Culture - Preliminary, Resulted NO GROWTH AFTER 1 DAY 05/22/18 Aerobic Culture - Preliminary, Resulted 05/22/18 Aerobic Culture Result 1 (MIROSLAVA) - Preliminary, Resulted 05/22/18 Aerobic Culture Result 2 (MIROSLAVA) - Preliminary, Resulted 05/22/18 Gram Stain - Final, Resulted 05/22/18 Gram Stain Result 1 (MIROSLAVA) - Final, Resulted 05/22/18 Gram Stain Result 2 (MIROSLAVA) - Final, Resulted 05/22/18 Gram Stain Result 3 (MIROSLAVA) - Final, Resulted Medications Current Medications Piperacillin Sod/ Tazobactam Sod 4.5 gm/Sodium Chloride 100 ml @ 200 mls/hr 1X ONCE IV Last administered on 05/22/18at 01:36; Start 05/22/18 at 01:00; Stop 05/22/18 at 01:29; Status DC Vancomycin HCl (Vanco Per Pharmacy) 1 each PRN DAILY PRN MC SEE COMMENTS Last administered on 05/24/18at 15:44; Start 05/22/18 at 00:30; Stop 05/25/18 at 09:12 ; Status DC Morphine Sulfate (Morphine Sulfate) 2 mg PRN Q15MIN PRN IV/SQ PAIN GREATER THAN 3/10; Start 05/22/18 at 00:30; Stop 05/22/18 at 09:46; Status DC Diphtheria/ Tetanus/Acell Pertussis (Boostrix) 0.5 ml ONCE ONCE VAX IM Last administered on 05/22/18at 01:44; Start 05/22/18 at 01:00; Stop 05/22/18 at 01:01 ; Status DC Vancomycin HCl 1.75 gm/Sodium Chloride 500 ml @ 250 mls/hr 1X ONCE IV Last administered on 05/22/18at 02:10; Start 05/22/18 at 01:30; Stop 05/22/18 at 03:29 ; Status DC Ondansetron HCl (Zofran) 4 mg PRN Q8HRS PRN IV NAUSEA/VOMITING 1ST CHOICE; Start 05/22/18 at 01:15; Stop 05/22/18 at 09:06; Status DC Morphine Sulfate (Morphine Sulfate) 4 mg PRN Q2HR PRN IV SEVERE PAIN; Start at 01:15; Stop 05/23/18 at 01:14; Status DC Clonidine HCl (Catapres) 0.1 mg Q8HRS PO Last administered on 05/25/18at 06:49; Start 05/22/18 at 02:00 Vancomycin HCl 1 gm/Sodium Chloride 250 ml @ 250 mls/hr Q12H IV Last administered on 05/23/18at 01:56; Start 05/22/18 at 14:00; Stop 05/23/18 at 14:44 ; Status DC Vancomycin HCl (Vancomycin Trough Level) 1 each 1X ONCE MC ; Start 05/23/18 at 13:30; Stop 05/23/18 at 13:31; Status DC Lactobacillus Rhamnosus (Culturelle) 1 cap BID PO Last administered on at 08:40; Start 05/22/18 at 09:00 Ondansetron HCl (Zofran) 4 mg PRN Q6HRS PRN IV NAUSEA/VOMITING 1ST CHOICE; Start 05/22/18 at 09:15 Oxycodone/ Acetaminophen (Percocet 5/325) 1 tab PRN Q4HRS PRN PO MODERATE PAIN ; Start 05/22/18 at 09:15 Oxycodone/ Acetaminophen (Percocet 10/325) 1 tab PRN Q4HRS PRN PO SEVERE PAIN; Start 05/22/18 at 09:15 Diphenhydramine HCl (Benadryl) 25 mg PRN QID PRN PO ITCHING; Start 05/22/18 at 11:00 Chlordiazepoxide (Librium) 25 mg PRN Q6HRS PRN PO ANXIETY / AGITATION; Start at 11:00 Nicotine (Nicoderm Cq 21mg) 1 patch PRN DAILY PRN TD SMOKING CESSATION; Start 05/22/18 at 11:00 Ceftriaxone Sodium (Rocephin) 1 gm Q24H IVP Last administered on 05/24/18at 11: 42; Start 05/22/18 at 12:00; Stop 05/25/18 at 09:05; Status DC Fluconazole (Diflucan) 200 mg DAILY PO Last administered on 05/25/18at 08:40; Start 05/22/18 at 12:00 Vancomycin HCl 1 gm/Sodium Chloride 250 ml @ 250 mls/hr Q8H IV Last administered on 05/24/18at 06:33; Start 05/23/18 at 15:00; Stop 05/24/18 at 15:30 ; Status DC Vancomycin HCl (Vancomycin Trough Level) 1 each 1X ONCE MC Last administered on 05/24/18at 14:30; Start 05/24/18 at 14:30; Stop 05/24/18 at 14:31; Status DC Penicillin G Benzathine (Bicillin L-A) 2,400,000 unit 1X ONCE IM Last administered on 05/24/18at 11:38; Start 05/24/18 at 10:30; Stop 05/24/18 at 10:31 ; Status DC Vancomycin HCl 1.25 gm/Sodium Chloride 250 ml @ 167 mls/hr Q8H IV Last administered on 05/25/18at 08:42; Start 05/24/18 at 16:00; Stop 05/25/18 at 09:05 ; Status DC Vancomycin HCl (Vancomycin Trough Level) 1 each 1X ONCE MC ; Start 05/25/18 at 15:30; Stop 05/25/18 at 15:30; Status DC Lisinopril (Prinivil) 5 mg DAILY PO Last administered on 05/25/18at 08:40; Start 05/25/18 at 09:00 Hydrochlorothiazide (Microzide) 12.5 mg DAILY PO Last administered on at 08:40; Start 05/25/18 at 09:00 Penicillin G Benzathine (Bicillin L-A) 2,400,000 unit WEEKLY IM ; Start at 09:00; Stop 06/08/18 at 08:59 Active Scripts Active Benadryl (Diphenhydramine Hcl) 25 Mg Capsule 1 Cap PO QID PRN Prednisone 20 Mg Tablet 2 Tab PO DAILY Start tomorrow 02/24/18 Reported No Known Medications Prior To Admisstion (Info) Each 1 Each Vitals/I & O Vital Sign - Last 24 Hours 05/24/18 05/24/18 05/24/18 05/24/18 11:00 15:00 16:14 19:00 Temp 97.8 98.8 97.8 97.8 98.8 97.8 Pulse 116 122 122 100 Resp 18 20 20 B/P (MAP) 139/105 (116) 132/100 (111) 132/100 172/113 (132) Pulse Ox 99 100 100 O2 Delivery Room Air Room Air Room Air 05/24/18 05/24/18 05/24/18 05/25/18 20:25 22:00 23:00 03:00 Temp 98.0 97.5 98.0 97.5 Pulse 100 117 109 Resp 20 20 B/P (MAP) 172/113 158/116 (130) 154/111 (125) Pulse Ox 99 99 O2 Delivery Room Air Room Air Room Air 3/18/19 05/25/18 05/25/18 05/25/18 06:49 06:50 07:39 07:53 Temp 97.8 97.8 Pulse 100 100 101 Resp 14 B/P (MAP) 157/116 157/116 (130) 150/112 (125) Pulse Ox 100 O2 Delivery Room Air Room Air Room Air 05/25/18 08:40 Pulse 101 B/P (MAP) 150/112 Intake and Output 05/24/18 05/24/18 05/25/18 15:00 23:00 07:00 Intake Total 500 ml 120 ml Output Total 200 ml Balance 500 ml -80 ml NEAL LOVELL III DO May 25, 2018 10:53
--- NOTE | 2018-05-25 11:30 | NUR ---
Discharge Note: HORACE CALDERON MAY Discharge instructions and discharge home medications reviewed with Patient and a copy given. All questions have been answered and understanding verbalized. The following instructions and handouts were given: information about wound infection. Discontinued lines and drains: IV line in left forearm removed, catheter tip intact. Patient discharged to home with self care with friend, patient ambulated to discharge vehicle.
--- NOTE | 2018-05-25 11:55 | DS ---
DATE OF DISCHARGE: 05/25/2018 ADMISSION DIAGNOSIS: Right foot infection. DISCHARGE DIAGNOSES: 1. Resolving right foot infection. 2. Syphilis and genital warts. CONSULTS: [facility]. PROCEDURES: None. HOSPITAL COURSE: The patient is a pleasant middle-aged male who initially presented with right foot infection. He has blisters between the right fourth and fifth toes. He was admitted. The above consults were obtained. He was then noted to have some genital warts and Infectious Disease recommended HIV testing and RPR testing. He apparently is positive for syphilis. HIV testing is still pending, but clinically the patient was seen and examined this morning, was doing great. His heart tones were normal. His lungs were clear. He wants to go home. We plan to discharge if okay with the subspecialist. DISPOSITION: Home. ACTIVITY: As tolerated. DIET: Low sodium. MEDICATIONS: Please see the [facility]. Infectious Disease did start him on benzathine penicillin weekly. TOTAL TIME: 32 minutes. NEAL LOVELL DO DR: [email or web address]/[email or web address] JOB#: [id number] / [id number]
[2018-05-31] MEDS ORDERED: PENICILLIN G BENZATHINE LA 2,400,000 UNIT/4 ML DISP.SYRIN. IM SCH (09:00)
== END 2018-05-25 11:30 | disposition home or self-care (01) | DRG 868 ==
LOC: ER 23:37 → 4 NORTH 05-22 00:53
PROVIDERS: ADMIT Internal Medicine; ATTEND Internal Medicine
DX: A53.9 Syphilis, unspecified (principal); B01.9 Varicella without complication; R78.81 Bacteremia; B35.3 Tinea pedis; A63.0 Anogenital (venereal) warts; B08.1 Molluscum contagiosum; B35.1 Tinea unguium; D72.829 Elevated white blood cell count, unspecified; F17.210 Nicotine dependence, cigarettes, uncomplicated; L28.0 Lichen simplex chronicus; L97.509 Non-pressure chronic ulcer of other part of unspecified foot with unspecified severity; F12.90 Cannabis use, unspecified, uncomplicated
CPT/HCPCS: 36415; 73630; 80048; 80053; 80202; 82565; 83605; 84145; 85025; 85651; 86140; 86592; 86593; 86703; 87040; 87070; 87077; 87205; 90471; 90715; 96365; J0561; J0696; J2543; J3370; J7040; J7050; 99285-25; J7030